=== PATIENT | female | born 2000 | race Caucasian/White ===

== ENCOUNTER 2024-06-24 10:28 | Emergency (ER) | payer MEDICAID, OTHER, SELFPAY ==
[2024-06-24] VITALS (11 sets, daily range): BP systolic 97–127; BP diastolic 54–63; PULSE 87–128; RESP 16–34; TEMP 36.7–37.3; O2SAT 90–98; BMI 19.5
--- NOTE | ~2024-06-24 | XR_ITS ---
EXAMINATION: XR CHEST CLINICAL INFORMATION: shortness of breath COMPARISON: None TECHNIQUE: One view of the chest FINDINGS: Lines and tubes: None. Clear lungs. No pleural effusion. No pneumothorax. Normal cardiomediastinal silhouette. XR/XR chest 1V IMPRESSION: * Clear lungs. Electronically signed by: Ely Sánchez MD 06/24/2024 05:34 PM EDT RP
--- NOTE | ~2024-06-24 | US_ITS ---
EXAMINATION: US TRIPLEX LOWER EXTREMITY, BILATERAL CLINICAL INFORMATION: Dyspnea, history of pulmonary embolus COMPARISON: None available. TECHNIQUE: Color-flow triplex imaging with spectral analysis and compression Doppler were performed on the bilateral lower extremities. FINDINGS: Respiratory variation, normal compression and augmented flow are noted throughout the bilateral lower extremities. The visualized common femoral vein, superficial femoral vein, profunda femoral vein, popliteal vein and midcalf peroneal and posterior tibial venous segments show no evidence of deep venous thrombosis bilaterally. There is no Gomez's cyst. US/US venous duplex LE BI IMPRESSION: No evidence of deep venous thrombosis involving the bilateral lower extremities. Electronically signed by: Marc oAntonio Daley MD 06/24/2024 02:20 PM EDT
--- NOTE | 2024-06-24 10:57 | ECG_ITS ---
Test Reason : CHEST PAIN Blood Pressure : / mmHG Vent. Rate : 093 BPM Atrial Rate : 093 BPM P-R Int : 132 ms QRS Dur : 068 ms QT Int : 342 ms P-R-T Axes : 074 072 066 degrees QTc Int : 425 ms Normal sinus rhythm Normal ECG No previous ECGs available Referred By: Generic ED Physician Electronically Signed By:LATOYA STORY
[2024-06-24 11:18] LABS: MANUAL DIFF FLAG NO
[2024-06-24 11:19] LABS: Basophils Percent Auto 0.3 % (0-2); Imm Gran Abs Auto 0.03 X10*3/uL (0.00-0.03); Imm Gran Pct Auto 0.5 % (0.0-0.4); PLT CLUMP 1; SCAN SMEAR FLAG 1
[2024-06-24 11:21] LABS: Eosinophils Absolute Auto 0.2 X10*3/uL (0.0-0.4); Eosinophils Percent Auto 2.5 % (0-4); Hematocrit 30.9 % (37.0-47.0); Hemoglobin 10.2 g/dl (12.0-16.0); Lymphocytes Absolute Auto 1.2 X10*3/uL (1.2-4.9); Lymphocytes Percent Auto 18.4 % (20-40); Mean Corpuscular Volume 78.6 fL (80.0-98.0); Mean Platelet Volume 10.6 fL (9.4-12.3); Monocytes Absolute Auto 0.4 X10*3/uL (0.1-1.2); Monocytes Percent Auto 6.1 % (2-11); Neutrophils Absolute Auto 4.6 x10*3/uL (2.0-8.3); Neutrophils Percent Auto 72.2 % (45-73); Red Blood Count 3.93 X10*6/uL (4.20-5.50); Red Cell Distribution Width 15.7 % (11.0-16.0)
[2024-06-24 11:24] LABS: Platelet Count 123 X10*3/uL (160-400); White Blood Count 6.4 X10*3/uL (4.8-10.8)
[2024-06-24 11:41] LABS: Alanine Aminotransferase 12 U/L (0-31); Albumin Level 3.5 g/dL (3.5-5.0); Alkaline Phosphatase 83 U/L (39-117); Anion Gap 12 (12-20); Aspartate Amino Transferase 10 U/L (5-31); Bilirubin Total 0.7 mg/dL (0.0-1.0); Blood Urea Nitrogen 8 mg/dL (9-16); Calcium 9.3 mg/dL (8.4-10.2); Carbon Dioxide 23 mmol/L (22-29); Chloride 110 mmol/L (96-108); Creatinine Clr Calc Pharmacy 109.3; Estimated Glomerular Filt Rate > 60; Glucose Random 67 mg/dL (60-115); HCG Quantitative 5017 mIU/mL; Potassium 3.6 mmol/L (3.3-5.1); Sodium 141 mmol/L (135-145); Total Protein 5.6 g/dL (6.5-8.0)
[2024-06-24 11:50] LABS: Troponin-I High Sensitivity < 2.7 ng/L (<3.5-17.0)
--- NOTE | 2024-06-24 12:10 | ED_ITS ---
HPI - General Adult General Chief complaint: Anxiety Stated complaint: anxiety Time Seen by Provider: 06/24/24 12:10 History of Present Illness ED Provider: Madeline GRIFFITH narrative: The patient is a 23-year-old female who reports that she is approximately 25 weeks . She has been living in [place] until 3 days ago. She came to this area 3 days ago on . She reports a history of myelofibrosis although she does not really know much about it. She says this is her 2nd . Her 1st was 7 years ago and she says it had no complications. She says that 2 years ago she had a pulmonary embolism. She says that during this she was hospitalized in the intensive care unit at a hospital in [place] 1-1/2 months ago for a kidney infection. She says that she is still on nitrofurantoin since that hospitalization and infection. She also takes a baby aspirin daily, apparently because of problems with her spleen she says. She says that she has a history of asthma but can not tolerate albuterol because of tachycardia and so uses only ipratropium. She says she also has a history of anxiety for which she has been prescribed hydroxyzine. The patient says that she comes to the hospital today because she feels anxious. She also has a sense of shortness of breath and chest discomfort. She says she has had trouble with breathing for a few years but possibly the trouble with the breathing is worse over the past couple of days. She has had some mild upper epigastric pain but no lower abdominal or pelvic pain. No vaginal bleeding or other concerns about the itself. She says she feels the baby moving a lot. The patient's current medications are a baby aspirin daily, nitrofurantoin, as needed hydroxyzine, and a vitamin as well as inhaled ipratropium. The patient is coughing in the emergency room today. She says the cough is chronic. She says she has had a chronic cough for 2 years. She says she produces green sputum. She says that she has been producing green sputum chronically for 2 years. She has not had a fever. She has no discomfort with urination, urinary frequency or urinary urgency. Related Data Previous Rx's ?Medication ?Instructions ?Recorded azithromycin 250 mg tablet 250 mg PO DAILY 4 days #4 tabs 06/24/24 ipratropium bromide 17 2 puff inhalation QID PRN 06/24/24 mcg/actuation HFA aerosol inhaler shortness of breath or wheezing #12.9 grams prednisone 20 mg tablet 20 mg PO DAILY #12 tabs 06/24/24 Allergies Allergy/AdvReac Type Severity Reaction Status Date / Time No Known Allergies Allergy Verified 06/24/24 10:53 Review of Systems 2 Review of Systems: Yes all other systems are reviewed and are negative [facility] Social History Social History Advance Directives: No Advance Directives Information Provided: No Do you have a plan to hurt others: No Plan Physical Exam ED Vital Signs: Vital Signs - 24 hr 06/24/24 10:47 06/24/24 13:52 06/24/24 14:00 Temperature 98.0 F 98.7 F 98.8 F Pulse Rate 98 87 99 Respiratory Rate 16 16 19 Blood Pressure 97/57 L 111/58 L 122/55 L Pulse Oximetry 95 98 96 Oxygen Delivery Method Room Air Room Air Room Air Oxygen Flow Rate 06/24/24 16:00 06/24/24 16:40 06/24/24 16:51 Temperature 98.1 F 98.7 F Pulse Rate 128 H 113 H 109 H Respiratory Rate 22 H 27 H 23 H Blood Pressure 127/63 127/63 Pulse Oximetry 90 L 94 Oxygen Delivery Method Room Air Nasal Cannula Oxygen Flow Rate 2 06/24/24 17:32 06/24/24 18:00 06/24/24 18:21 Temperature 98.5 F 99.1 F Pulse Rate 112 H 111 H 109 H Respiratory Rate 20 34 H 26 H Blood Pressure 100/54 L 114/57 L Pulse Oximetry 94 93 Oxygen Delivery Method Nasal Cannula Aerosol Mask Oxygen Flow Rate 2 06/24/24 19:28 Temperature 98.4 F Pulse Rate 109 H Respiratory Rate 18 Blood Pressure 105/56 L Pulse Oximetry 91 L Oxygen Delivery Method Room Air Oxygen Flow Rate BMI result Body Mass Index 19.5 Const Other: The patient is a 23-year-old who looks somewhat chronically ill. She is very slim despite being . She weighs 46.7 kilos. She was coughing a great deal with a congested-sounding cough. She says she has had a cough like this for 2 years. HENMT Other: Face is symmetrical. Mucous membranes moist. The posterior pharynx is unremarkable. Eyes Other: Pupils are round equal, conjunctivae are clear, extraocular movements intact. Neck Other: No JVD. No lymphadenopathy. Resp Other: The patient seemed to have some mild increased work of breathing. She had coarse and rhonchorous air entry bilaterally without joel wheezes. Cardio Rate: regular rate Rhythm: regular rhythm Heart sounds: S1 normal heart sound present and S2 normal heart sound present GI Other: The patient has a gravid abdomen with the uterine fundus just above the level of the umbilicus. There was no abdominal tenderness or uterine tenderness. Skin Other: Skin was pale and dry Neuro Other: The patient is awake and alert with a normal mental status. Cranial nerves are grossly intact. She moves her extremities normally and appropriately. Her gait is normal. She seems grossly neurologically intact Extrem Other: No peripheral edema. No calf swelling or tenderness or asymmetry. Medications Administered Discontinued Medications Generic Name Dose Route Start Last Admin Trade Name Freq PRN Reason Stop Dose Admin Azithromycin 500 mg 06/24/24 18:20 06/24/24 19:31 Azithromycin 500 Mg Tablet PO 06/24/24 18:21 500 mg ONCE ONE Administration Levalbuterol HCl 1.25 mg/ 0 mg 06/24/24 18:12 06/24/24 18:19 Ipratropium [place] 0.5 mg INHALE 06/24/24 18:13 5 dose ONCE ONE Administration Levalbuterol HCl 1.25 mg 06/24/24 16:26 06/24/24 16:47 Levalbuterol Hcl 1.25 Mg/3 Ml Vial.Neb INHALE 06/24/24 16:27 1.25 mg ONCE ONE Administration Prednisone 60 mg 06/24/24 18:20 06/24/24 19:30 Prednisone 20 Mg Tablet PO 06/24/24 18:21 60 mg ONCE ONE Administration Medical Decision Making Medical Decision Making MDM Narrative: The patient is a 23-year-old female who reports that she is 25 weeks with her 2nd child. Her previous was 7 years ago and was apparently without complications. She reports that she has a history of asthma. She also reports that she has a history of myelofibrosis. Additionally she says that a month and a half ago she was hospitalized at an ICU in [place] for a kidney infection. She also says that 2 years ago she had a pulmonary embolism. She was unable to give me any details about the duration of any anticoagulation treatment she had received for a pulmonary embolism. She says she has not been on any anticoagulation during this aside from the time that she was admitted to the ICU. The patient has been on nitrofurantoin since the hospitalization for her kidney infection. She says she also takes a baby aspirin daily because of something to do with her spleen. She is also on vitamins. The patient arrived in the [facility] 3 days ago. She does not have any local healthcare providers. The patient was complaining primarily of a sense of anxiety and frustration that hydroxyzine was not helping her anxiety. She looks mildly short of breath and was coughing a great deal. The patient repeatedly said that she has had breathing problems like this consistently for 2 years and that neither her shortness of breath nor her cough are new. She has a history of asthma but apparently does not take albuterol because of tachycardia. She says she takes ipratropium. My overall clinical impression was that the patient's respiratory symptoms seemed more related to congestion and cough and possibly asthma than a pulmonary embolism. To address the concern for a possible pulmonary embolism, particularly given her and a previous history of a pulmonary embolism, we obtained a D-dimer that was undetectable. Also bilateral lower extremity ultrasounds that were negative. Troponin undetectable. A chest x-ray was read as negative. COVID, RSV, and influenza is negative. She has a normal white count of 6.4. Mild anemia with a hemoglobin of 10.2. Platelet count 123. Differential on her white count shows 72% neutrophils, 18% lymphocytes. I spoke with Dr. Dominic muro of [facility] who recommended possibly contacting [facility] OB for additional advice. I contacted the [facility] transfer hotline and was able to speak with a senior resident. Given the the patient has comorbidities it seems not unreasonable that the patient possibly be seen at the maternal medicine clinic. The plan at this point will be for the patient to be discharged for treatment of a possible asthma exacerbation with prednisone and azithromycin. My hope is that the Maternal- Medicine office will reach out to the patient for an appointment, trying to contact the patient at her cell phone [phone]. The patient has also been given the number for the Maternal- Medicine Clinic at [facility]. If the patient's symptoms are worse she should return to the emergency room. The patient remained frustrated that I was not able to prescribe something to help with the symptoms that she describes as anxiety. Lab Data 06/24/24 11:09 06/24/24 11:09 Labs: Lab Results 06/24/24 06/24/24 06/24/24 Range/Units 11:09 14:02 14:04 WBC 6.4 (4.8-10.8) X10*3/uL RBC 3.93 L (4.20-5.50) X10*6/uL Hgb 10.2 L (12.0-16.0) g/dl Hct 30.9 L (37.0-47.0) % MCV 78.6 L (80.0-98.0) fL MCH 26.0 L (27.0-33.0) pg MCHC 33.0 (31.0-35.0) g/dl RDW 15.7 (11.0-16.0) % Plt Count 123 L (160-400) X10*3/uL MPV 10.6 (9.4-12.3) fL Immature Gran % (Auto) 0.5 H (0.0-0.4) % Neut % (Auto) 72.2 (45-73) % Lymph % (Auto) 18.4 L (20-40) % [place] % (Auto) 6.1 (2-11) % Eos % (Auto) 2.5 (0-4) % Baso % (Auto) 0.3 (0-2) % Lymph # (Auto) 1.2 (1.2-4.9) X10*3/uL [place] # (Auto) 0.4 (0.1-1.2) X10*3/uL Eos # (Auto) 0.2 (0.0-0.4) X10*3/uL Baso # (Auto) 0.0 (0.0-0.2) X10*3/uL Abs Immat Gran (auto) 0.03 (0.00-0.03) X10*3/uL Absolute Neuts (auto) 4.6 (2.0-8.3) x10*3/uL Absolute Nucleated RBC 0.000 (0.0-0.012) X10*3/uL Nucleated RBC % (auto) 0.0 (0.0-0.2) /100WBC D-Dimer High Sensitivty < 150 NG/ML Sodium 141 (135-145) mmol/L Potassium 3.6 (3.3-5.1) mmol/L Chloride 110 H (96-108) mmol/L Carbon Dioxide 23 (22-29) mmol/L Anion Gap 12 (12-20) BUN 8 L (9-16) mg/dL Creatinine 0.59 (0.5-1.4) mg/dL Estim Creat Clear Calc 109.3 Estimated GFR > 60 Random Glucose 67 (60-115) mg/dL Calcium 9.3 (8.4-10.2) mg/dL Total Bilirubin 0.7 (0.0-1.0) mg/dL AST 10 (5-31) U/L ALT 12 (0-31) U/L Alkaline Phosphatase 83 (39-117) U/L Troponin I High Sens < 2.7 (<3.5-17.0) ng/L Total Protein 5.6 L (6.5-8.0) g/dL Albumin 3.5 (3.5-5.0) g/dL Beta HCG, Quant 5017 mIU/mL Urine Color Dark Yellow Urine Appearance Clear Urine pH 5.5 (5.0-9.0) Ur Specific [place] 1.025 (1.005-1.025) Urine Protein 30 (1+) H (Neg-Trace) mg/dL Urine Glucose (UA) Negative (Negative) mg/dL Urine Ketones Trace (Negative) mg/dL Urine Blood Trace H (Negative) Urine Nitrite Negative (Negative) Ur Leukocyte Esterase Moderate (2+) H (Negative) Urine RBC 11-20 H (0-2) /HPF Urine WBC 11-20 H (0-5) /HPF Ur Squamous Epith Cells 3-5 (0-2) /HPF Urine Bacteria None Seen (None Seen) Hyaline Casts 0-2 (0-2) /LPF Influenza Type A (PCR) (Negative) Influenza Type B (PCR) (Negative) RSV RNA Qual (PCR) (Negative) SARS-CoV-2 RNA (RT-PCR) (Negative) 06/24/24 Range/Units 20:03 WBC (4.8-10.8) X10*3/uL RBC (4.20-5.50) X10*6/uL Hgb (12.0-16.0) g/dl Hct (37.0-47.0) % MCV (80.0-98.0) fL MCH (27.0-33.0) pg MCHC (31.0-35.0) g/dl RDW (11.0-16.0) % Plt Count (160-400) X10*3/uL MPV (9.4-12.3) fL Immature Gran % (Auto) (0.0-0.4) % Neut % (Auto) (45-73) % Lymph % (Auto) (20-40) % [place] % (Auto) (2-11) % Eos % (Auto) (0-4) % Baso % (Auto) (0-2) % Lymph # (Auto) (1.2-4.9) X10*3/uL [place] # (Auto) (0.1-1.2) X10*3/uL Eos # (Auto) (0.0-0.4) X10*3/uL Baso # (Auto) (0.0-0.2) X10*3/uL Abs Immat Gran (auto) (0.00-0.03) X10*3/uL Absolute Neuts (auto) (2.0-8.3) x10*3/uL Absolute Nucleated RBC (0.0-0.012) X10*3/uL Nucleated RBC % (auto) (0.0-0.2) /100WBC D-Dimer High Sensitivty NG/ML Sodium (135-145) mmol/L Potassium (3.3-5.1) mmol/L Chloride (96-108) mmol/L Carbon Dioxide (22-29) mmol/L Anion Gap (12-20) BUN (9-16) mg/dL Creatinine (0.5-1.4) mg/dL Estim Creat Clear Calc Estimated GFR Random Glucose (60-115) mg/dL Calcium (8.4-10.2) mg/dL Total Bilirubin (0.0-1.0) mg/dL AST (5-31) U/L ALT (0-31) U/L Alkaline Phosphatase (39-117) U/L Troponin I High Sens (<3.5-17.0) ng/L Total Protein (6.5-8.0) g/dL Albumin (3.5-5.0) g/dL Beta HCG, Quant mIU/mL Urine Color Urine Appearance Urine pH (5.0-9.0) Ur Specific [place] (1.005-1.025) Urine Protein (Neg-Trace) mg/dL Urine Glucose (UA) (Negative) mg/dL Urine Ketones (Negative) mg/dL Urine Blood (Negative) Urine Nitrite (Negative) Ur Leukocyte Esterase (Negative) Urine RBC (0-2) /HPF Urine WBC (0-5) /HPF Ur Squamous Epith Cells (0-2) /HPF Urine Bacteria (None Seen) Hyaline Casts (0-2) /LPF Influenza Type A (PCR) NEGATIVE (Negative) Influenza Type B (PCR) NEGATIVE (Negative) RSV RNA Qual (PCR) NEGATIVE (Negative) SARS-CoV-2 RNA (RT-PCR) NEGATIVE (Negative) Discharge Plan Discharge Clinical Impression: Acute asthma exacerbation, 25 weeks gestation of , Hx of myelofibrosis Patient Disposition: Home, Self-Care Additional Instructions: Your testing in the emergency department seems reassuring. I think that a lot of your breathing symptoms may be related to asthma. You have been started on a course of prednisone (a steroid medication) and the antibiotic azithromycin. Please take these medications once a day. Next doses of each of these medications tomorrow. I have also sent a prescription for an ipratropium inhaler which you may use on an as-needed basis, 2 puffs up to 4 times a day. Please follow through with your efforts to get local insurance as scheduled tomorrow. I have spoken to 1 of the obstetrical services at [facility]. My hope is that they call you at [phone] tomorrow to set up an appointment for you. The phone number for the office is [phone]. You may also try to call the office if you do not hear from them. If at any point you feel that your symptoms are significantly worse you should return to the emergency room. You are welcome to return to this emergency room but if you go to the [facility] Emergency room it may be more helpful in getting set up with the obstetricians at [facility]. Prescriptions: New prednisone 20 mg tablet 20 mg PO DAILY Qty: 12 0RF Rx Instructions: Take 3 tablets daily x2 days then 2 tablets daily x3 days azithromycin 250 mg tablet 250 mg PO DAILY 4 Days Qty: 4 0RF Rx Instructions: start on day 2 of therapy ipratropium bromide 17 mcg/actuation HFA aerosol inhaler 2 puff inhalation QID PRN (Reason: shortness of breath or wheezing) Qty: 12.9 0RF Referrals: [facility] Maternal Med [Provider Group] (Twenty-five weeks , asthma, myelofibrosis, other issues) Print Language: Tajik
[2024-06-24 14:11] LABS: Appearance Urine Clear; Color Urine Dark Yellow; Glucose Urine UA Negative (Negative); Leukocyte Esterase Urine Moderate (2+) (Negative); Nitrite Urine Negative (Negative); PH 5.5 (5.0-9.0); Specific Gravity - Urine 1.025 (1.005-1.025); UMIC TRIGGER UACC YES; Urine Blood Trace (Negative); Urine Ketones Trace mg/dL (Negative); Urine Protein 30 (1+) mg/dL (Neg-Trace)
[2024-06-24 14:14] LABS: Bacteria Urine None Seen (None Seen); Hyaline Casts Urine 0-2 /LPF (0-2); UACC Culture Trigger YES
[2024-06-24 14:30] LABS: D Dimer High Sensitivity < 150 NG/ML
[2024-06-24] MEDS: levalbuterol HCL 1.25 MG/3 ML VIAL.NEB INHALE (16:47)
--- NOTE | 2024-06-24 17:05 | PC.NURSE ---
heart rate done at bedside with Doppler, rate strong, rate 145-155. patient tolerated well.
[2024-06-24] MEDS: levalbuterol HCL 1.25 MG, Ipratropium Bromide 0.5 MG INHALE (18:19)
[2024-06-24] MEDS: predniSONE 20 MG TABLET 60 MG PO (19:30)
[2024-06-24] MEDS: Azithromycin 500 MG TABLET PO (19:31)
[2024-06-24 20:45] LABS: Influenza A PCR NEGATIVE (Negative); Influenza B PCR NEGATIVE (Negative); Resp Syncy Virus RNA Qual PCR NEGATIVE (Negative); SARS COV2 PCR INHOUSE NEGATIVE (Negative)
== END 2024-06-24 21:16 | disposition home or self-care (01) ==
PROVIDERS: Emergency Provider Emergency Medicine
DX: O99.342 Other mental disorders complicating pregnancy, second trimester (principal); Z3A.25 25 weeks gestation of pregnancy; R00.0 Tachycardia, unspecified; R06.02 Shortness of breath; R60.0 Localized edema; R07.89 Other chest pain; Z03.818 Encounter for observation for suspected exposure to other biological agents ruled out; Z79.899 Other long term (current) drug therapy
CPT/HCPCS: 0241U; 36415; 71045; 80053; 81001; 84484; 84702; 85025; 85379; 87086; 93005; 93970; 94640; 99284

== ENCOUNTER 2024-07-06 03:43 | Emergency (ER) | payer OTHER, SELFPAY ==
--- NOTE | 2024-07-06 | ECG_ITS ---
Test Reason : tacycardia Blood Pressure : / mmHG Vent. Rate : 118 BPM Atrial Rate : 118 BPM P-R Int : 114 ms QRS Dur : 064 ms QT Int : 314 ms P-R-T Axes : 071 059 067 degrees QTc Int : 440 ms Sinus tachycardia Otherwise normal ECG When compared with ECG of 24-JUN-2024 10:57, Heart rate has increased Referred By: Generic ED Physician Electronically Signed By:LATOYA STORY
[2024-07-06 03:51] VITALS: BP 100/79; PULSE 118; RESP 22; TEMP 36.9; O2SAT 92
[2024-07-06 04:19] VITALS: BP 100/79; PULSE 118; RESP 22; TEMP 36.9; O2SAT 92
--- NOTE | 2024-07-06 04:26 | MHC.EDTECH ---
Patient brought in from triage,changed into hospital attire,placed pt on the instructional support services director,patient ambulated to the bathroom with a steady gait,urine sample obtained and sent to lab,family at bedside call elena in reach
[2024-07-06 04:35] LABS: Appearance Urine Clear; Color Urine Yellow; Glucose Urine UA Negative (Negative); Leukocyte Esterase Urine Small (1+) (Negative); Nitrite Urine Negative (Negative); PH 7.5 (5.0-9.0); UMIC TRIGGER UACC YES; Urine Blood Small (1+) (Negative); Urine Ketones Negative (Negative); Urine Protein Negative (Neg-Trace)
[2024-07-06] MEDS: Acetaminophen 325 MG TABLET 650 MG PO (04:46)
[2024-07-06 04:49] LABS: Bacteria Urine None Seen (None Seen); Hyaline Casts Urine 0-2 /LPF (0-2); Squamous Epithelial Cell Urine 0-2 /HPF (0-2); UACC Culture Trigger YES; WBC Urine 0-5 /HPF (0-5)
--- NOTE | 2024-07-06 05:35 | ED_ITS ---
HPI - General Adult General Chief complaint: Anxiety Stated complaint: heart palp Time Seen by Provider: 07/06/24 05:35 History of Present Illness ED Provider: Madeline GRIFFITH narrative: The patient is a 23-year-old female who is approximately 27 weeks . The patient was seen here almost 2 weeks ago for similar complaints. Before her visit here 2 weeks ago she had just arrived to this area from [place]. She says that this is her second . Her first was 7 years ago and was uncomplicated. She reports a history of myelofibrosis. She also reported that she has a history of a pulmonary embolism 2 years ago. During this she was hospitalized in [place] for pyelonephritis. Apparently she was in the ICU for awhile. She also reports that she has had chronic shortness of breath and a chronic cough for 2 years. The patient also said that she has been having a lot of anxiety and had been prescribed hydroxyzine for anxiety but did not feel that it was helpful. At her previous ER visit the patient had been tachycardic with oxygen saturations of around 92-94% on room air. A D-dimer has been sent to evaluate for possible pulmonary embolism. Her D-dimer was undetectable. Additionally we had performed bilateral lower extremity Doppler ultrasounds which were negative. Patient has been on long-term nitrofurantoin since her hospitalization for pyelonephritis 2 months ago. At her last ER visit I had spoken to an obstetrical resident to see if the patient could get into the Maternal- medicine high risk clinic and it has was my hope that the patient would follow up with that clinic after discharge from here. She was discharged with a prescription of prednisone and azithromycin. The patient says that she has been in contact with the [facility] obstetrical clinic and that she has had an obstetrical ultrasound in anticipation of an actual doctor's visit but the doctor's visit has not yet happened. She says she has an appointment on July 11. The patient says that she has continued to have difficulty with anxiety and was sleeping. She says that she contacted the obstetrical nurse at [facility] about her anxiety in her sense of difficulty speaking and was advised to try Benadryl. She says that she comes to the emergency room this morning because she took Benadryl hoping that it would help her sleep but instead she felt an increased sense of anxiety and she felt her heart was racing. While waiting to be seen in the emergency room today she felt that her symptoms had subsided and she was feeling less anxious and she had felt that her heart was no longer racing. Overall she feels that her breathing is better than when she was here last time following the prednisone and azithromycin. No fever, sweats, chills. She has been feeling the baby move. She has had no vaginal discharge or vaginal bleeding. Related Data Previous Rx's ?Medication ?Instructions ?Recorded azithromycin 250 mg tablet 250 mg PO DAILY 4 days #4 tabs 06/24/24 ipratropium bromide 17 2 puff inhalation QID PRN 06/24/24 mcg/actuation HFA aerosol inhaler shortness of breath or wheezing #12.9 grams prednisone 20 mg tablet 20 mg PO DAILY #12 tabs 06/24/24 Allergies Allergy/AdvReac Type Severity Reaction Status Date / Time No Known Allergies Allergy Verified 07/06/24 03:53 Review of Systems Review of Systems: Yes all other systems are reviewed and are negative COUNTS INCLUDE 234 BEDS AT THE [facility] Social History Social History Alcohol intake: former Smoked in Last 30 Days: No Use of substances other than those prescribed or required for medical reasons: No Advance Directives: No Advance Directives Information Provided: Yes Patient : Yes Physical Exam ED Vital Signs: Vital Signs - 24 hr 07/06/24 03:51 07/06/24 04:19 07/06/24 06:20 Temperature 98.5 F 98.5 F Pulse Rate 118 H 118 H 111 H Respiratory Rate 22 H 22 H 20 Blood Pressure 100/79 100/79 Pulse Oximetry 92 92 Oxygen Delivery Method Room Air Room Air 07/06/24 06:33 Temperature 98.3 F Pulse Rate 98 Respiratory Rate 30 H Blood Pressure 114/59 L Pulse Oximetry 92 Oxygen Delivery Method Room Air BMI result Body Mass Index 20.0 Const Other: The patient is a 23-year-old who is with a gravid abdomen but is otherwise very thin. She does not appear in acute distress. HENMT Other: Face is symmetrical. Mucous membranes moist. Eyes Other: Pupils are round equal, conjunctivae clear Neck Neck: Yes no JVD Resp Other: Slight wheezes bilaterally. No increased work of breathing Cardio Rate: regular rate Rhythm: regular rhythm Heart sounds: S1 normal heart sound present and S2 normal heart sound present GI Other: The patient has a gravid abdomen. The uterine fundus is just above the umbilicus. The abdomen is nontender. The uterus is nontender. Skin Other: Skin is pale and dry Neuro Other: The patient is awake and alert with a normal mental status. Cranial nerves are grossly intact. She moves her extremities normally. She has a normal gait. Extrem Other: No calf swelling or tenderness. No edema, no asymmetry. Medications Administered Discontinued Medications Generic Name Dose Route Start Last Admin Trade Name Remington PRN Reason Stop Dose Admin Acetaminophen 650 mg 07/06/24 04:40 07/06/24 04:46 Acetaminophen 325 Mg Tablet PO 07/06/24 04:41 650 mg ONCE ONE Administration Levalbuterol HCl 1.25 mg/ 0 mg 07/06/24 06:05 07/06/24 06:17 Ipratropium [place] 0.5 mg INHALE 07/06/24 06:06 5.5 dose ONCE ONE Administration Medical Decision Making Medical Decision Making [facility] Narrative: The patient is a 23-year-old who is approximately 27 weeks . She has a history of myelofibrosis and a history of a pulmonary embolism. She also has a history of asthma and chronic cough. Earlier in this she had a hospitalization at an ICU in [place] for pyelonephritis. She is on suppressive nitrofurantoin. With the patient was here 2 weeks ago she was complaining primarily of anxiety and asking for anxiety medication. She also had a significant cough that she said was chronic and which she had had for 2 years. During her workup on her previous ER visit she had an undetectable D-dimer and a negative bilateral lower extremity Doppler ultrasound. She was ultimately discharged on prednisone and azithromycin and a plan to follow up with the [facility] Maternal- Medicine Clinic. She presents tonight after apparently taking Benadryl that was recommended by a nurse she had called, possibly at [facility] OB. She says that she developed a significant skin sense of palpitations and racing heart after taking the Benadryl and so came to the emergency room. Since she was here 2 weeks ago she has had an ultrasound at [facility] but has not actually had an OB appointment yet. The patient is most concerned that she feels chronically anxious and is sleeping extremely poorly. She feels that her respiratory status is doing better since she took the prednisone and azithromycin. She is not having any chest pain or pleuritic pain. Clinically the patient looks very much the same as she did 2 weeks ago. Her vital signs of very similar to her vital signs 2 weeks ago. Given house similar her presentation is today I think we probably do not need to repeat the workup she had previously. She seems to be here primarily because she felt bad after taking Benadryl. She was given a dose of Xopenex (she says she does not tolerate albuterol). She then fell asleep. She seemed to feel better and I think she may be discharged to keep her appointment with [facility] next week. Lab Data Labs: Lab Results 07/06/24 Range/Units 04:16 Urine Color Yellow Urine Appearance Clear Urine pH 7.5 (5.0-9.0) Ur Specific [place] 1.020 (1.005-1.025) Urine Protein Negative (Neg-Trace) mg/dL Urine Glucose (UA) Negative (Negative) mg/dL Urine Ketones Negative (Negative) mg/dL Urine Blood Small (1+) H (Negative) Urine Nitrite Negative (Negative) Ur Leukocyte Esterase Small (1+) H (Negative) Urine RBC 11-20 H (0-2) /HPF Urine WBC 0-5 (0-5) /HPF Ur Squamous Epith Cells 0-2 (0-2) /HPF Urine Bacteria None Seen (None Seen) Hyaline Casts 0-2 (0-2) /LPF Discharge Plan Discharge Clinical Impression: Palpitations, Anxiety, with 27 completed weeks gestation, Asthma, History of myelofibrosis Patient Disposition: Home, Self-Care Additional Instructions: Please continue your current medications. Please stay in touch with the obstetrical office at [facility]. Keep your appointment with them next week. Return to the emergency room if significantly worse. Prescriptions: No Action prednisone 20 mg tablet 20 mg PO DAILY Qty: 12 0RF Rx Instructions: Take 3 tablets daily x2 days then 2 tablets daily x3 days azithromycin 250 mg tablet 250 mg PO DAILY 4 Days Qty: 4 0RF Rx Instructions: start on day 2 of therapy ipratropium bromide 17 mcg/actuation HFA aerosol inhaler 2 puff inhalation QID PRN (Reason: shortness of breath or wheezing) Qty: 12.9 0RF Print Language: English
[2024-07-06] MEDS: levalbuterol HCL 1.25 MG, Ipratropium Bromide 0.5 MG INHALE (06:17)
[2024-07-06 06:20] VITALS: PULSE 111; RESP 20; O2SAT 94
[2024-07-06 06:33] VITALS: BP 114/59; PULSE 98; RESP 30; TEMP 36.8; O2SAT 92
[2024-07-06 07:31] VITALS: BP 114/59; PULSE 98; RESP 30; TEMP 36.8; O2SAT 92
== END 2024-07-06 07:31 | disposition home or self-care (01) ==
PROVIDERS: Emergency Provider Emergency Medicine
DX: O99.342 Other mental disorders complicating pregnancy, second trimester (principal); F41.9 Anxiety disorder, unspecified; O26.892 Other specified pregnancy related conditions, second trimester; R00.2 Palpitations; O99.512 Diseases of the respiratory system complicating pregnancy, second trimester; J45.909 Unspecified asthma, uncomplicated; D75.81 Myelofibrosis; Z3A.27 27 weeks gestation of pregnancy
CPT/HCPCS: 81001; 87086; 93005; 94640; 99285

== ENCOUNTER 2024-07-21 17:44 | Emergency (ER) | payer OTHER, SELFPAY ==
--- NOTE | ~2024-07-21 | XR_ITS ---
EXAMINATION: XR CHEST CLINICAL INFORMATION: Shortness of breath COMPARISON: 07/24/2024 TECHNIQUE: Portable semiupright 6:16 PM view of the chest was obtained. FINDINGS: Increased chronic lung markings right base appears chronic. No new findings grossly. Heart and mediastinum are normal. No pleural disease. No ectopic air. No gross rib deformity. XR/XR chest 1V IMPRESSION: Chronic changes at the bases as above. Electronically signed by: Sonido Mota MD 07/21/2024 06:39 PM EDT
--- NOTE | ~2024-07-21 | CT_ITS ---
EXAMINATION: CT ANGIOGRAM OF THE CHEST WITH AND WITHOUT CONTRAST (CT PULMONARY ANGIOGRAM FOR PE) CLINICAL INFORMATION: SOB, Tachy, hypox, hx of PE, R sided pain COMPARISON: EXAMINATION: CT ANGIOGRAM OF THE CHEST WITH AND WITHOUT CONTRAST (CT PULMONARY ANGIOGRAM FOR PE) CLINICAL INFORMATION: SOB, Tachy, hypox, hx of PE, R sided pain COMPARISON: None available. TECHNIQUE: Examination is limited due to respiratory motion Prior to contrast administration, noncontrast localization images were obtained. Subsequently, multidetector volumetric imaging was performed from the thoracic inlet to below the diaphragms following the administration of 65 mL Omnipaque 350 intravenous contrast. No contrast reaction reported Sagittal, coronal, and MIP oblique sagittal reformatted images were obtained on the CT workstation, uploaded to PACS, and reviewed. This CT examination was performed using dose optimization techniques as appropriate, variously including the following: *Automated exposure control *Adjustment of mA and/or kV according to patient size (this includes techniques or standardized protocols for targeted exams where dose is matched to indication/reason for exam; i.e. extremities or head) *Use of iterative reconstruction technique Total exam dose-length product 151 mGy-cm FINDINGS: QUALITY OF STUDY/CONTRAST BOLUS: Suboptimal due to respiratory motion PULMONARY ARTERIES: No pulmonary emboli. THORACIC AORTA: No aneurysm. LUNG: No focal consolidation, nodules or masses. PLEURA: No pleural effusion or pneumothorax. MEDIASTINUM: Normal heart size. No pericardial effusion. No hilar or mediastinal lymphadenopathy. No evidence of septal bowing or right heart strain. CORONARY ARTERY CALCIFICATION: None visualized on this study. CHEST WALL/AXILLA: No axillary or internal mammary lymphadenopathy. OSSEOUS STRUCTURES: No acute or suspicious osseous abnormality. UPPER ABDOMEN: Unremarkable. No reflux of contrast into the hepatic veins to suggest elevated right heart pressures. CT/CT angio chest PE protocol IMPRESSION: No evidence of pulmonary embolism Technically limited study due to respiratory motion VTE: negative Electronically signed by: Nathalie Nichole MD 07/21/2024 07:47 PM EDT
[2024-07-21 17:55] VITALS: BP 109/59; PULSE 134; RESP 20; TEMP 37.1; O2SAT 91; BMI 19.6
--- NOTE | 2024-07-21 17:59 | ED_ITS ---
HPI - General Adult General Chief complaint: Abdominal Pain Stated complaint: abd pain, sob ,29 wks Time Seen by Provider: 07/21/24 18:07 History of Present Illness ED Provider: Madeline GRIFFITH narrative: The patient is a 24-year-old female who is approximately 29 weeks . She has a complicated past medical history that includes a history of myelofibrosis an asthma. She also has a history of a pulmonary embolism 2 years ago. This is her 2nd . Her 1st was 7 years ago and she had no complications during that . Additionally, during this she was hospitalized in an intensive care unit 2-1/2 months ago for a kidney infection. The patient has been living in [place] until 1 month ago. Her ICU hospitalization was in [place]. The patient has been on Macrobid prophylaxis since that hospitalization. The patient came to this area about 1 month ago on June 24. This emergency room soon after arriving with a complaint of a chronic cough. She had an undetectable D-dimer at that time and seemed to have asthmatic bronchitis. She was treated with prednisone and azithromycin. Given her complex medical history she was referred to the Maternal- medicine program at [facility]. The patient presented here a 2nd time on July 06 complaining of anxiety and difficulty sleeping. She was evaluated. She seemed stable and was encouraged to continue hydroxyzine and continued to keep appointments to follow up with [facility] Maternal- Medicine program. The patient ultimately hold up with [facility]. As far as I can tell from faxed records patient has been started on prophylactic enoxaparin based on her history of previous pulmonary embolism. However the patient says that although she received the prescription about a week ago she has only taken 1 dose of this medication. The patient says that yesterday evening at around 18:30 she developed sharp right-sided chest pain and shortness of breath. Pain lasted awhile but eventually subsided and she went to sleep. This morning the pain returned for awhile but again subsided. This afternoon she went to [employer]. While at [employer] she was walking around but then she felt short of breath and ultimately had a family member drive her to the hospital. Related Data Previous Rx's ?Medication ?Instructions ?Recorded azithromycin 250 mg tablet 250 mg PO DAILY 4 days #4 tabs 06/24/24 ipratropium bromide 17 2 puff inhalation QID PRN 06/24/24 mcg/actuation HFA aerosol inhaler shortness of breath or wheezing #12.9 grams prednisone 20 mg tablet 20 mg PO DAILY #12 tabs 06/24/24 Allergies Allergy/AdvReac Type Severity Reaction Status Date / Time No Known Allergies Allergy Verified 07/21/24 18:00 Review of Systems 2 Review of Systems: Yes all other systems are reviewed and are negative [facility] Social History Social History Alcohol intake: former Advance Directives: No Advance Directives Information Provided: No Physical Exam ED Vital Signs: Vital Signs - 24 hr 07/21/24 17:55 07/21/24 18:10 07/21/24 18:24 Temperature 98.8 F 99.2 F Pulse Rate 134 H 130 H 120 H Respiratory Rate 20 28 H 18 Blood Pressure 109/59 L 112/56 L Pulse Oximetry 91 L 98 Oxygen Delivery Method Room Air Nasal Cannula Oxygen Flow Rate 4 07/21/24 20:00 07/21/24 20:49 07/21/24 21:30 Temperature 99.4 F 99.2 F Pulse Rate 135 H 128 H 130 H Respiratory Rate 18 26 H 22 H Blood Pressure 124/49 L 112/59 L Pulse Oximetry 96 92 Oxygen Delivery Method Nasal Cannula Nasal Cannula Oxygen Flow Rate 2 2 BMI result Body Mass Index 19.6 Const Other: The patient is a thin the small woman who was obviously . She looked uncomfortable and short of breath and quite ill. HENMT Other: Face is symmetrical. Mucous membranes moist. Eyes General: appearance normal, both eyes and all related structures Neck Neck: Yes no JVD Chest Other: There is right-sided chest wall tenderness of the lower chest wall in the anterior axillary line. Resp Other: The patient was exhibiting tachypnea and increased work of breathing. There were wheezes bilaterally Cardio Rate: tachycardic Rhythm: regular rhythm Heart sounds: S1 normal heart sound present and S2 normal heart sound present GI Other: The patient has a gravid abdomen. No abdominal tenderness. Skin Other: Skin is dry and unremarkable Neuro Other: The patient is awake and alert. Mental status is normal. She is appropriately oriented. Cranial nerves are grossly intact. She moves her extremities normally and appropriately. Extrem Other: No calf swelling or tenderness. No asymmetry. Course Course Course Narrative: This is a Rapid Medical Examination (RME) performed by Malgorzata Miguel PA-C in triage. Full HPI, ROS, assessment and treatment plan per primary provider in the Main ED. 24 yo female 29 wks here for eval of intermittent RUQ abdominal pain radiating to right flank x24 hours. reports assoc sob with pain on deep breathing. denies smoking cigarettes or vaping. Denies fever, chills, vaginal bleeding, vaginal discharge. Reports having ultrasound confirming intrauterine however does not have an appointment with an OB until next week in [place]. reports feeling the baby move. + satting 91% on RA. lungs sounds diminished to right base however difficult to determine as patient cannot take a deep breath d/t pain Plan: labs, UA, viral swabs Medications Administered Discontinued Medications Generic Name Dose Route Start Last Admin Trade Name Remington PRN Reason Stop Dose Admin Acetaminophen 975 mg 07/21/24 20:26 07/21/24 20:40 Acetaminophen 325 Mg Tablet PO 07/21/24 20:27 975 mg ONCE ONE Administration Levalbuterol HCl 1.25 mg/ 0 mg 07/21/24 18:08 07/21/24 18:23 Ipratropium [place] 0.5 mg INHALE 07/21/24 18:09 5 dose ONCE ONE Administration Levalbuterol HCl 1.25 mg/ 0 mg 07/21/24 20:42 07/21/24 20:48 Ipratropium [place] 0.5 mg INHALE 07/21/24 20:43 5.5 dose ONCE ONE Administration Prednisone 60 mg 07/21/24 20:25 07/21/24 20:40 Prednisone 20 Mg Tablet PO 07/21/24 20:26 60 mg ONCE ONE Administration Medical Decision Making Medical Decision Making MDM Narrative: The patient arrived looking quite unwell. She looked uncomfortable, short of breath, tachypneic, and tachycardic. She was holding her right chest her area of discomfort. Oxygen saturations on room air wre as low as 88%. The patient was placed on supplemental oxygen. She was given a Xopenex/ipratropium updraft. Labs were sent. She was consented for a chest x- ray. This was unremarkable. Her D-dimer was elevated although her troponin and BNP were not elevated. She was consented also for a CT pulmonary angiogram which I felt was given her elevated D-dimer, her tachycardia, her tachypnea, her low oxygen saturations, and her history of a previous pulmonary embolism. The CT pulmonary angiogram did not show any pulmonary embolism or other acute process. She seemed to feel better with updrafts. She was also given 60 mg of oral prednisone. Despite feeling better she continued to have an oxygen requirement. I feel the patient should be hospitalized for what at this point I suspect is an asthma exacerbation. She still seems to have a lot of right-sided pleuritic pain that I assume is musculoskeletal. I think her abdomen seems benign. The patient has a complex medical history including a history of myelofibrosis, previous pulmonary embolism, asthma, and an episode of pyelonephritis during this . Given problems I felt that hospitalization at [facility] where she has been evaluated by the Maternal Health Clinic would be appropriate. I contacted the transfer center and the patient has been accepted Center for further care. Lab Data 07/21/24 18:24 07/21/24 18:24 Labs: Lab Results 07/21/24 07/21/24 07/21/24 Range/Units 18:24 18:28 18:34 WBC 11.5 H (4.8-10.8) X10*3/uL RBC 4.44 (4.20-5.50) X10*6/uL Hgb 10.9 L (12.0-16.0) g/dl Hct 33.8 L (37.0-47.0) % MCV 76.1 L (80.0-98.0) fL MCH 24.5 L (27.0-33.0) pg MCHC 32.2 (31.0-35.0) g/dl RDW 15.7 (11.0-16.0) % Plt Count 210 D (160-400) X10*3/uL MPV 9.7 (9.4-12.3) fL Immature Gran % (Auto) 0.9 H (0.0-0.4) % Neut % (Auto) 78.3 H (45-73) % Lymph % (Auto) 14.7 L (20-40) % [place] % (Auto) 4.7 (2-11) % Eos % (Auto) 1.2 (0-4) % Baso % (Auto) 0.2 (0-2) % Lymph # (Auto) 1.7 (1.2-4.9) X10*3/uL [place] # (Auto) 0.5 (0.1-1.2) X10*3/uL Eos # (Auto) 0.1 (0.0-0.4) X10*3/uL Baso # (Auto) 0.0 (0.0-0.2) X10*3/uL Abs Immat Gran (auto) 0.10 H (0.00-0.03) X10*3/uL Absolute Neuts (auto) 9.0 H (2.0-8.3) x10*3/uL Absolute Nucleated RBC 0.000 (0.0-0.012) X10*3/uL Nucleated RBC % (auto) 0.0 (0.0-0.2) /100WBC aPTT Heparin Protocol 33.2 L (53-77.9) SEC D-Dimer High Sensitivty 479 NG/ML VBG pH 7.38 (7.32-7.43) VBG pCO2 40 mmHg VBG pO2 37 mmHg VBG HCO3 24 (22-26) mmol/L VBG O2 Saturation 47.0 % VBG Base Excess -0.7 mmol/L Sodium 135 (135-145) mmol/L Potassium 3.7 (3.3-5.1) mmol/L Chloride 102 (96-108) mmol/L Carbon Dioxide 22 (22-29) mmol/L Anion Gap 15 (12-20) BUN 6 L (9-16) mg/dL Creatinine 0.58 (0.5-1.4) mg/dL Estim Creat Clear Calc 111.4 Estimated GFR > 60 Random Glucose 96 (60-115) mg/dL Calcium 9.5 (8.4-10.2) mg/dL Magnesium 1.5 L (1.6-2.6) mg/dL Total Bilirubin 1.2 H (0.0-1.0) mg/dL Direct Bilirubin 0.4 (0.0-0.5) mg/dL AST 8 (5-31) U/L ALT 11 (0-31) U/L Alkaline Phosphatase 129 H (39-117) U/L Troponin I High Sens < 2.7 (<3.5-17.0) ng/L B-Natriuretic Peptide < 10 (<100) pg/mL Total Protein 6.4 L (6.5-8.0) g/dL Albumin 3.7 (3.5-5.0) g/dL Lipase 8 (8-78) U/L Urine Color Urine Appearance Urine pH (5.0-9.0) Ur Specific [place] (1.005-1.025) Urine Protein (Neg-Trace) mg/dL Urine Glucose (UA) (Negative) mg/dL Urine Ketones (Negative) mg/dL Urine Blood (Negative) Urine Nitrite (Negative) Ur Leukocyte Esterase (Negative) Urine RBC (0-2) /HPF Urine WBC (0-5) /HPF Ur Squamous Epith Cells (0-2) /HPF Urine Bacteria (None Seen) Hyaline Casts (0-2) /LPF Urine Test (NEGATIVE) Influenza Type A (PCR) NEGATIVE (Negative) Influenza Type B (PCR) NEGATIVE (Negative) RSV RNA Qual (PCR) NEGATIVE (Negative) SARS-CoV-2 RNA (RT-PCR) NEGATIVE (Negative) 07/21/24 Range/Units 22:59 WBC (4.8-10.8) X10*3/uL RBC (4.20-5.50) X10*6/uL Hgb (12.0-16.0) g/dl Hct (37.0-47.0) % MCV (80.0-98.0) fL MCH (27.0-33.0) pg MCHC (31.0-35.0) g/dl RDW (11.0-16.0) % Plt Count (160-400) X10*3/uL MPV (9.4-12.3) fL Immature Gran % (Auto) (0.0-0.4) % Neut % (Auto) (45-73) % Lymph % (Auto) (20-40) % [place] % (Auto) (2-11) % Eos % (Auto) (0-4) % Baso % (Auto) (0-2) % Lymph # (Auto) (1.2-4.9) X10*3/uL [place] # (Auto) (0.1-1.2) X10*3/uL Eos # (Auto) (0.0-0.4) X10*3/uL Baso # (Auto) (0.0-0.2) X10*3/uL Abs Immat Gran (auto) (0.00-0.03) X10*3/uL Absolute Neuts (auto) (2.0-8.3) x10*3/uL Absolute Nucleated RBC (0.0-0.012) X10*3/uL Nucleated RBC % (auto) (0.0-0.2) /100WBC aPTT Heparin Protocol (53-77.9) SEC D-Dimer High Sensitivty NG/ML VBG pH (7.32-7.43) VBG pCO2 mmHg VBG pO2 mmHg VBG HCO3 (22-26) mmol/L VBG O2 Saturation % VBG Base Excess mmol/L Sodium (135-145) mmol/L Potassium (3.3-5.1) mmol/L Chloride (96-108) mmol/L Carbon Dioxide (22-29) mmol/L Anion Gap (12-20) BUN (9-16) mg/dL Creatinine (0.5-1.4) mg/dL Estim Creat Clear Calc Estimated GFR Random Glucose (60-115) mg/dL Calcium (8.4-10.2) mg/dL Magnesium (1.6-2.6) mg/dL Total Bilirubin (0.0-1.0) mg/dL Direct Bilirubin (0.0-0.5) mg/dL AST (5-31) U/L ALT (0-31) U/L Alkaline Phosphatase (39-117) U/L Troponin I High Sens (<3.5-17.0) ng/L B-Natriuretic Peptide (<100) pg/mL Total Protein (6.5-8.0) g/dL Albumin (3.5-5.0) g/dL Lipase (8-78) U/L Urine Color Yellow Urine Appearance Clear Urine pH 7.0 (5.0-9.0) Ur Specific [place] >= 1.030 H (1.005-1.025) Urine Protein Trace (Neg-Trace) mg/dL Urine Glucose (UA) Negative (Negative) mg/dL Urine Ketones Negative (Negative) mg/dL Urine Blood Negative (Negative) Urine Nitrite Negative (Negative) Ur Leukocyte Esterase Small (1+) H (Negative) Urine RBC 0-2 (0-2) /HPF Urine WBC 0-5 (0-5) /HPF Ur Squamous Epith Cells 3-5 (0-2) /HPF Urine Bacteria Trace (None Seen) Hyaline Casts 0-2 (0-2) /LPF Urine Test POSITIVE H (NEGATIVE) Influenza Type A (PCR) (Negative) Influenza Type B (PCR) (Negative) RSV RNA Qual (PCR) (Negative) SARS-CoV-2 RNA (RT-PCR) (Negative) Discharge Plan Discharge Clinical Impression: Shortness of breath, Allergic asthma with acute exacerbation, Right-sided chest pain, Tachypnea, Tachycardia, Hypoxia, 29 weeks gestation of Patient Disposition: [facility] Transfer Details: [facility], need for obstetrical availability Prescriptions: No Action prednisone 20 mg tablet 20 mg PO DAILY Qty: 12 0RF Rx Instructions: Take 3 tablets daily x2 days then 2 tablets daily x3 days azithromycin 250 mg tablet 250 mg PO DAILY 4 Days Qty: 4 0RF Rx Instructions: start on day 2 of therapy ipratropium bromide 17 mcg/actuation HFA aerosol inhaler 2 puff inhalation QID PRN (Reason: shortness of breath or wheezing) Qty: 12.9 0RF Discharge Date/Time: 07/22/24 00:45 Print Language: Tanzanian
--- NOTE | 2024-07-21 18:09 | ECG_ITS ---
Test Reason : SOB Blood Pressure : / mmHG Vent. Rate : 126 BPM Atrial Rate : 126 BPM P-R Int : 126 ms QRS Dur : 066 ms QT Int : 288 ms P-R-T Axes : 068 074 071 degrees QTc Int : 417 ms Sinus tachycardia Low voltage QRS Borderline ECG When compared with ECG of 06-JUL-2024 03:41, No significant change was found Referred By: Juventino Correa Electronically Signed By:CARMEN PADRON MD
--- NOTE | 2024-07-21 18:09 | PC.NURSE ---
Pt. on cardiac and continuous SPO2 monitor at this time. Abner Correa MD at bedside.
[2024-07-21 18:10] VITALS: BP 112/56; PULSE 130; RESP 28; TEMP 37.3; O2SAT 98
[2024-07-21] MEDS: levalbuterol HCL 1.25 MG, Ipratropium Bromide 0.5 MG INHALE ×2 (18:23→20:48)
[2024-07-21 18:24] VITALS: PULSE 120; RESP 18; O2SAT 98
[2024-07-21 18:29] LABS: MANUAL DIFF FLAG NO
[2024-07-21 18:33] LABS: VBG Base Excess -0.7 mmol/L; VBG HCO3 24 mmol/L (22-26); VBG pCO2 40 mmHg; VBG pH 7.38 (7.32-7.43); VBG pO2 37 mmHg
[2024-07-21 18:33] LABS: Venous Blood Gas Refer to POC result
--- NOTE | 2024-07-21 18:33 | PC.NURSE ---
20G inserted to RAC. Tolerated well. Good blood return.
--- NOTE | 2024-07-21 18:33 | PC.NURSE ---
HR = 163
[2024-07-21 18:46] LABS: Basophils Percent Auto 0.2 % (0-2); Eosinophils Absolute Auto 0.1 X10*3/uL (0.0-0.4); Eosinophils Percent Auto 1.2 % (0-4); Hematocrit 33.8 % (37.0-47.0); Hemoglobin 10.9 g/dl (12.0-16.0); Imm Gran Pct Auto 0.9 % (0.0-0.4); Lymphocytes Absolute Auto 1.7 X10*3/uL (1.2-4.9); Lymphocytes Percent Auto 14.7 % (20-40); Mean Corpuscular HGB Conc 32.2 g/dl (31.0-35.0); Mean Corpuscular Hemoglobin 24.5 pg (27.0-33.0); Mean Corpuscular Volume 76.1 fL (80.0-98.0); Mean Platelet Volume 9.7 fL (9.4-12.3); Monocytes Absolute Auto 0.5 X10*3/uL (0.1-1.2); Monocytes Percent Auto 4.7 % (2-11); Neutrophils Percent Auto 78.3 % (45-73); Platelet Count 210 X10*3/uL (160-400); Red Blood Count 4.44 X10*6/uL (4.20-5.50); Red Cell Distribution Width 15.7 % (11.0-16.0); White Blood Count 11.5 X10*3/uL (4.8-10.8)
[2024-07-21 18:49] LABS: D Dimer High Sensitivity 479 NG/ML
[2024-07-21 18:50] LABS: Lipase 8 U/L (8-78); Magnesium 1.5 mg/dL (1.6-2.6); PTT Heparin Drip 33.2 SEC (53-77.9)
[2024-07-21 18:52] LABS: Alanine Aminotransferase 11 U/L (0-31); Albumin Level 3.7 g/dL (3.5-5.0); Alkaline Phosphatase 129 U/L (39-117); Anion Gap 15 (12-20); Aspartate Amino Transferase 8 U/L (5-31); Bilirubin Direct 0.4 mg/dL (0.0-0.5); Bilirubin Total 1.2 mg/dL (0.0-1.0); Blood Urea Nitrogen 6 mg/dL (9-16); Calcium 9.5 mg/dL (8.4-10.2); Carbon Dioxide 22 mmol/L (22-29); Chloride 102 mmol/L (96-108); Creatinine Clr Calc Pharmacy 111.4; Estimated Glomerular Filt Rate > 60; Glucose Random 96 mg/dL (60-115); Potassium 3.7 mmol/L (3.3-5.1); Sodium 135 mmol/L (135-145); Total Protein 6.4 g/dL (6.5-8.0)
[2024-07-21 18:55] LABS: B Type Natriuretic Peptide < 10 pg/mL (<100)
[2024-07-21 19:07] LABS: Troponin-I High Sensitivity < 2.7 ng/L (<3.5-17.0)
[2024-07-21 19:21] LABS: Influenza A PCR NEGATIVE (Negative); Influenza B PCR NEGATIVE (Negative); Resp Syncy Virus RNA Qual PCR NEGATIVE (Negative); SARS COV2 PCR INHOUSE NEGATIVE (Negative)
[2024-07-21 20:00] VITALS: BP 124/49; PULSE 135; RESP 18; TEMP 37.4; O2SAT 96
[2024-07-21] MEDS: predniSONE 20 MG TABLET 60 MG PO (20:40)
[2024-07-21] MEDS: Acetaminophen 325 MG TABLET 975 MG PO (20:40)
[2024-07-21 20:49] VITALS: PULSE 128; RESP 26; O2SAT 95
[2024-07-21 21:30] VITALS: BP 112/59; PULSE 130; RESP 22; TEMP 37.3; O2SAT 92
--- NOTE | 2024-07-21 22:55 | PC.NURSE ---
Called report to [facility] labor and delivery Spoke to RN. Answered all pertinent questions.
[2024-07-21 23:08] LABS: Appearance Urine Clear; Color Urine Yellow; Glucose Urine UA Negative (Negative); Leukocyte Esterase Urine Small (1+) (Negative); Nitrite Urine Negative (Negative); Specific Gravity - Urine >= 1.030 (1.005-1.025); UMIC TRIGGER UACC YES; Urine Blood Negative (Negative); Urine Ketones Negative (Negative); Urine Protein Trace mg/dL (Neg-Trace)
[2024-07-21 23:10] LABS: UPreg QC Valid YES; Urine Pregnancy POSITIVE (NEGATIVE)
[2024-07-21 23:22] LABS: Bacteria Urine Trace (None Seen); Hyaline Casts Urine 0-2 /LPF (0-2); RBC Urine 0-2 /HPF (0-2); UACC Culture Trigger YES; WBC Urine 0-5 /HPF (0-5)
== END 2024-07-22 00:45 | disposition short-term general hospital (02) ==
PROVIDERS: Physician Assistant Medical; Emergency Provider Emergency Medicine
DX: O26.892 Other specified pregnancy related conditions, second trimester (principal); R06.02 Shortness of breath; R07.9 Chest pain, unspecified; O99.512 Diseases of the respiratory system complicating pregnancy, second trimester; J45.901 Unspecified asthma with (acute) exacerbation; O99.891 Other specified diseases and conditions complicating pregnancy; R00.0 Tachycardia, unspecified; R09.02 Hypoxemia; R06.82 Tachypnea, not elsewhere classified; Z3A.29 29 weeks gestation of pregnancy; Z03.818 Encounter for observation for suspected exposure to other biological agents ruled out
CPT/HCPCS: 0241U; 36415; 71045; 71275; 80048; 80076; 81001; 81025; 82803; 83690; 83735; 83880; 84484; 85025; 85379; 85730; 87086; 93005; 94640; 99285

== ENCOUNTER → 2024-07-21 18:09 | Outpatient (BNV) | payer OTHER, SELFPAY | PROVIDERS: Emergency Provider Emergency Medicine; Visit Provider Internal Medicine Cardiovascular Disease | DX: R00.0 Tachycardia, unspecified (principal) | CPT/HCPCS: 93010 ==

== ENCOUNTER 2024-12-04 22:04 | Inpatient (IN) | payer OTHER, SELFPAY ==
--- NOTE | ~2024-12-04 | XR_ITS ---
CLINICAL HISTORY: Cough 1 view chest x-ray Comparison: CR/SR - XR CHEST 1V - 07/21/24 18:16 EDT Findings: Mild left lower lobe atelectasis. No significant pleural effusion or pneumothorax. Heart size is normal. No acute fracture. IMPRESSION: Mild left lower lobe atelectasis. This document has been electronically signed by: Seth Atkinson MD on 12/04/2024 23:15:10
[2024-12-04 22:20] VITALS: BP 90/59; BP 96/52; PULSE 117; PULSE 118; RESP 18; TEMP 37.9; O2SAT 88; O2SAT 94; BMI 21.7
[2024-12-04 23:23] LABS: Influenza A PCR POSITIVE (Negative); Influenza B PCR NEGATIVE (Negative); Resp Syncy Virus RNA Qual PCR NEGATIVE (Negative); SARS COV2 PCR INHOUSE POSITIVE (Negative)
[2024-12-05] VITALS (14 sets, daily range): BP systolic 92–107; BP diastolic 43–64; PULSE 56–113; RESP 16–97; TEMP 36.3–39.2; O2SAT 89–97
[2024-12-05] MEDS: 0.9 % Sodium Chloride 1,000 ML 999 ML IV (00:56)
[2024-12-05] MEDS: Acetaminophen 325 MG TABLET 975 MG PO (00:57)
[2024-12-05] MEDS: Ketorolac Tromethamine 15 MG/ML VIAL IVPUSH (00:57)
--- NOTE | 2024-12-05 03:13 | ED.GENADULT ---
HPI - General Adult General Chief complaint: Headache Stated complaint: flu like symptoms Time Seen by Provider: 12/05/24 00:47 Source: patient Limitations: language barrier History of Present Illness ED Provider: Raysa Brown PA-C HPI narrative: 44-year-old female presents with viral illness. Patient complains of fever, generalized body aches, nausea vomiting, weakness headache and cough. Her children are sick at home with similar symptoms they were diagnosed with influenza. Related Data Previous Rx's ?Medication ?Instructions ?Recorded azithromycin 250 mg tablet 250 mg PO DAILY 4 days #4 tabs 06/24/24 ipratropium bromide 17 2 puff inhalation QID PRN 06/24/24 mcg/actuation HFA aerosol inhaler shortness of breath or wheezing #12.9 grams prednisone 20 mg tablet 20 mg PO DAILY #12 tabs 06/24/24 Allergies Allergy/AdvReac Type Severity Reaction Status Date / Time No Known Allergies Allergy Verified 12/04/24 22:23 Review of Systems Review of Systems: Yes all other systems are reviewed and are negative Constitutional: Constitutional: Reports fatigue, Reports fever(s) and Reports malaise Cardiovascular: Cardiovascular: Denies chest pain and Reports dyspnea Respiratory: Respiratory: Reports cough, Reports dyspnea and Denies wheezing Gastrointestinal: Gastrointestinal: Denies abdominal pain, Reports nausea and Reports vomiting Musculoskeletal: Musculoskeletal: Reports myalgias Endocrine: Endocrine: Reports fatigue Allergic/Immunologic: Allergic/Immunologic: Denies wheezing PMFSH Past Medical History Attestation statement: The following information was validated with the patient. Social History Social History Alcohol intake: former Smoked in Last 30 Days: No Use of substances other than those prescribed or required for medical reasons: No Advance Directives: No Do you have a plan to hurt others: No Plan Patient : No Physical Exam ED Vital Signs: Vital Signs - 24 hr 12/04/24 22:20 12/05/24 00:44 12/05/24 02:23 Temperature 100.2 F 102.5 F H 99.0 F Pulse Rate 118 H 113 H 94 Respiratory Rate 18 18 16 Blood Pressure 90/59 L 102/54 L 94/43 L Pulse Oximetry 94 95 93 Oxygen Delivery Method Nasal Cannula Nasal Cannula Room Air Oxygen Flow Rate 2 BMI result Body Mass Index 21.7 Const Other: Alert, ill in appearance Orientation/consciousness: patient oriented x3 Resp Other: lungs clear to auscultation Cardio Other: normal peripheral perfusion Skin Other: warm dry no rash Neuro General: patient oriented x3, gait normal, no focal motor deficits and CN's II-XI intact bilaterally Psych Other: cooperative Course Reevaluation(s) Reevaluation #1: temperature improved heart rate improved, we ambulated the patient her oxygen in his fluctuating between 87 and 93 primarily 87, we will be admitting. We will be giving Decadron, Time: 03:32 Medications Administered Discontinued Medications Generic Name Dose Route Start Last Admin Trade Name Remington PRN Reason Stop Dose Admin Acetaminophen 975 mg 12/05/24 00:53 12/05/24 00:57 Acetaminophen 325 Mg Tablet PO 12/05/24 00:54 975 mg ONCE ONE Administration Sodium Chloride 1,000 mls @ 999 mls/hr 12/05/24 01:00 12/05/24 02:24 Ns IV 12/05/24 02:00 Infused .Q1H1M JUSTIN Infusion Ketorolac Tromethamine 15 mg 12/05/24 00:53 12/05/24 00:57 Ketorolac Tromethamine 15 Mg/Ml Vial IVPUSH 12/05/24 00:54 15 mg ONCE ONE Administration Medical Decision Making Medical Decision Making MDM Narrative: 44-year-old female presents with viral illness. Patient complains of fever, generalized body aches, nausea vomiting, weakness headache and cough. Her children are sick at home with similar symptoms they were diagnosed with influenza. problem: Sick contacts with influenza History: Per patient I have considered the following differential diagnoses: Viral syndrome, pneumonia, bronchitis Plan: Patient tested positive for influenza and COVID, her chest x-ray is clear. she is febrile and tachycardic, we will be giving IV fluid Toradol and Tylenol. I have independently reviewed the following tests: Labs: Leukocytosis with left shift, not anemic, magnesium is subtly low at 1.5, viral panel positive for COVID and influenza Chest x-ray:Findings: Mild left lower lobe atelectasis. No significant pleural effusion or pneumothorax. Heart size is normal. No acute fracture. IMPRESSION: Mild left lower lobe atelectasis. This document has been electronically signed by: Seth Atkinson MD on 12/04/2024 23:15:10 Lab Data Labs: Lab Results 12/04/24 Range/Units 22:25 Influenza Type A (PCR) POSITIVE A (Negative) Influenza Type B (PCR) NEGATIVE (Negative) RSV RNA Qual (PCR) NEGATIVE (Negative) SARS-CoV-2 RNA (RT-PCR) POSITIVE A (Negative) Discharge Plan Discharge Patient Disposition: Admitted As Inpatient Prescriptions: No Action prednisone 20 mg tablet 20 mg PO DAILY Qty: 12 0RF Rx Instructions: Take 3 tablets daily x2 days then 2 tablets daily x3 days azithromycin 250 mg tablet 250 mg PO DAILY 4 Days Qty: 4 0RF Rx Instructions: start on day 2 of therapy ipratropium bromide 17 mcg/actuation HFA aerosol inhaler 2 puff inhalation QID PRN (Reason: shortness of breath or wheezing) Qty: 12.9 0RF Print Language: Khmer
[2024-12-05] MEDS: dexAMETHasone sod phosphate 10 MG/ML VIAL IVPUSH (03:30)
[2024-12-05] MEDS: Magnesium Sulfate/H2O 2 GM/50 ML PIGGYBACK IV (04:07)
--- NOTE | 2024-12-05 05:55 | P.HPHOSP_ITS ---
History of Present Illness Date of Service: 12/05/24 Chief Complaint: Cough This has a 24-year-old female with pertinent history of asthma not on home oxygen who presented to the emergency department for evaluation of cough and dyspnea. Patient states her symptoms started 1 day prior to presentation. He has been having generalized body ache, headache, fevers and chills. Also has been having productive cough with clear sputum production. She does have sick contacts at home who were positive for influenza A. Endorses shortness of breath which is worse with exertion. Had 1 episode of nausea and vomiting. Has been having weakness and easy fatigability. Is compliant with her home inhaler for asthma. No chest pain, palpitations, abdominal pain, changes in urinary or bowel habits. In the emergency department, patient found to be positive for COVID-19 and influenza a. O2 sat dropped to 87% with ambulation. Review of Systems Constitutional: Constitutional: Reports fatigue, Reports headache(s), Reports lethargy, Reports malaise and Reports weakness ENT: Reports headache(s) Cardiovascular: Cardiovascular: Reports no additional cardiovascular complaints and Reports dyspnea on exertion Respiratory: Respiratory: Reports cough, Reports dyspnea on exertion and Reports wheezing Gastrointestinal: Gastrointestinal: Reports no additional gastrointestinal complaints Genitourinary: Genitourinary: Reports no additional female genitourinary complaints Neurologic: Reports headache(s) and Reports weakness Endocrine: Endocrine: Reports fatigue Allergic/Immunologic: Allergic/Immunologic: Reports wheezing [facility] Medical History Asthma Pertinent family history: No family history of early CAD Social History Alcohol intake: former Smoked in Last 30 Days: No Use of substances other than those prescribed or required for medical reasons: No Advance Directives: No Do you have a plan to hurt others: No Plan Patient : No Meds Allergies Allergy/AdvReac Type Severity Reaction Status Date / Time No Known Allergies Allergy Verified 12/04/24 22:23 Active Medications: Current Medications Albuterol/Ipratropium (Albuterol/Iprat 2.5/0.5mg 3 Ml Ampul.Neb) 3 ml INHALE RQ4H WHILE AWAKE JUSTIN Albuterol/Ipratropium (Albuterol/Iprat 2.5/0.5mg 3 Ml Ampul.Neb) 3 ml INHALE Q4H PRN PRN Reason: Wheezing Dexamethasone (Dexamethasone 6 Mg Tablet) 6 mg PO DAILY [facility] Lactated Ringer's (Lr) 1,000 mls @ 999 mls/hr IV .Q1H1M [facility] Stop: 12/05/24 07:00 Oseltamivir Phosphate (Oseltamivir Phosphate 75 Mg Capsule) 75 mg PO Q12H [facility] Stop: 12/09/24 18:01 Physical Exam Vital Signs and Narrative: Vital Signs: Last Vital Signs Temp 98.6 F 12/05/24 03:29 Pulse 79 12/05/24 03:29 Resp 16 12/05/24 03:29 BP 93/48 L 12/05/24 03:29 Pulse Ox 95 12/05/24 03:29 O2 Del Method Room Air 12/05/24 03:29 O2 Flow Rate 2 12/05/24 00:44 Oxygen Flow Rate 2 12/04/24 22:20 BMI result Body Mass Index 21.7 Young female lying in bed in no distress Neck supple, no JVD Regular rate and rhythm, S1-S2 heard Bilateral wheezing appreciated Abdomen soft nontender, no guarding, no rigidity Patient is awake, alert and oriented to self, place, time and person ; no focal motor deficit Psych: Normal mood No pedal edema Results Labs Labs: Laboratory Results - last 24 hr 12/04/24 22:25 Influenza Type A (PCR) POSITIVE A Influenza Type B (PCR) NEGATIVE RSV RNA Qual (PCR) NEGATIVE SARS-CoV-2 RNA (RT-PCR) POSITIVE A Assessment and Plan (1) Hypoxia: Status: Acute (2) Influenza A: Status: Acute (3) COVID: Status: Acute Plan This has a 24-year-old female with pertinent history of asthma not on home oxygen who presented to the emergency department for evaluation of cough and dyspnea. #. Acute ambulatory hypoxia due to COVID-19 and influenza A infection leading to asthma exacerbation: Will admit patient with scheduled and p.r.n. DuoNebs. Initiating systemic steroids and Tamiflu. Continue home inhaler. Oxygen saturation dropped to 87% with ambulation. Labs pending Med rec pending DVT prophylaxis: None. Low risk. Patient is ambulatory Full code Admit as inpatient and will require two night minimum hospital stay for supplemental oxygen, monitoring of respiratory status (as above), which is not possible in a lesser acute setting. Quality Stroke Does the patient have a stroke diagnosis?: No VTE Prior VTE?: No VTE Risk Level:: Medical - low VTE Device Contraindication: Treatment Not Indicated VTE Drug Contraindication: Treatment Not Indicated
[2024-12-05] MEDS: Oseltamivir Phosphate 75 MG CAPSULE PO ×2 (06:39→17:18)
[2024-12-05] MEDS: Lactated Ringers 1,000 ML 999 ML IV ×2 (06:40→20:51)
[2024-12-05] MEDS: Albuterol/Iprat 2.5/0.5MG 3 ML AMPUL.NEB INHALE ×4 (07:00→20:29)
[2024-12-05 07:04] LABS: Eosinophils Percent Auto 0.3 % (0-4); Hematocrit 36.3 % (37.0-47.0); Hemoglobin 11.6 g/dl (12.0-16.0); Imm Gran Abs Auto 0.03 X10*3/uL (0.00-0.03); Imm Gran Pct Auto 0.8 % (0.0-0.4); Lymphocytes Absolute Auto 1.3 X10*3/uL (1.2-4.9); Lymphocytes Percent Auto 33.2 % (20-40); Mean Corpuscular Hemoglobin 26.4 pg (27.0-33.0); Mean Corpuscular Volume 82.5 fL (80.0-98.0); Mean Platelet Volume 11.5 fL (9.4-12.3); Monocytes Absolute Auto 0.2 X10*3/uL (0.1-1.2); Monocytes Percent Auto 4.9 % (2-11); Neutrophils Absolute Auto 2.4 x10*3/uL (2.0-8.3); Neutrophils Percent Auto 60.8 % (45-73); Red Cell Distribution Width 15.3 % (11.0-16.0); White Blood Count 3.9 X10*3/uL (4.8-10.8)
[2024-12-05 07:05] LABS: Platelet Count 61 X10*3/uL (160-400)
[2024-12-05 07:06] LABS: MANUAL DIFF FLAG SCAN
[2024-12-05 07:22] LABS: Alanine Aminotransferase 35 U/L (0-31); Albumin Level 3.7 g/dL (3.5-5.0); Alkaline Phosphatase 71 U/L (39-117); Anion Gap 11 (12-20); Aspartate Amino Transferase 37 U/L (5-31); Bilirubin Total 1.5 mg/dL (0.0-1.0); Blood Urea Nitrogen 9 mg/dL (9-16); Calcium 8.5 mg/dL (8.4-10.2); Carbon Dioxide 22 mmol/L (22-29); Chloride 111 mmol/L (96-108); Creatinine Clr Calc Pharmacy 100.6; Estimated Glomerular Filt Rate > 60; Glucose Random 110 mg/dL (60-115); HCG Quantitative < 2 mIU/mL; Potassium 4.1 mmol/L (3.3-5.1); Sodium 140 mmol/L (135-145); Total Protein 5.8 g/dL (6.5-8.0)
--- NOTE | 2024-12-05 07:40 | PC.NURSE ---
pt is alert and oriented, skin appropriate for ethnicity but slightly clammy, respirations even and unlabored, ls clear but was found at rest with her oxygen reading at 89% on room air, pt put on 2l via nasal cannual
[2024-12-05] MEDS: Azithromycin 500 MG in 0.9 % Sodium Chloride 250 ML 125 MG IV (07:50)
[2024-12-05] MEDS: cefTRIAXone sodium 1 GM VIAL IVPUSH (07:50)
[2024-12-05 08:10] LABS: Lactic Acid 0.7 mmol/L (0.5-2.0)
--- NOTE | 2024-12-05 08:38 | PHA.MEDREC ---
Addendum entered by Shahram Metz RPh 12/05/24 08:54: Med rec was reviewed by Darcy. Original Note: Pharmacy Consult ? Medication Reconciliation Pharmacy has completed the medication reconciliation. Spoke with patient and utilizing sample card maker. She confirmed she is only taking the Breo Ellipta once daily, the Albuterol Nebulization solution and inhalers as needed and Tylenol 325mg 2 tabs as needed for pain/headaches. She confirmed she took the Tylenol last 2 days ago.
[2024-12-05 08:48] LABS: SLIDE REVIEW VERIFIED
[2024-12-05] MEDS: dexAMETHasone 6 MG TABLET PO (10:41)
[2024-12-05] MEDS: Acetaminophen 325 MG TABLET 650 MG PO ×2 (10:42→17:17)
[2024-12-05] MEDS: ondansetron HCL 4 MG/2 ML VIAL IVPUSH (10:49)
--- NOTE | 2024-12-05 14:14 | PM.EVENT ---
Event Note Date of Service: 12/05/24 Event Note: 24-year-old female with pertinent history of asthma not on home oxygen who presented to the emergency department for evaluation of cough and dyspnea. Acute hypoxia due to COVID-19 and influenza A infection leading to asthma exacerbation scheduled and p.r.n. DuRadhabs. Initiating systemic steroids and Tamiflu. Continue home inhaler. Oxygen saturation to keep labs >90% Transaminitis likely secondary to viral infection DVT prophylaxis: None. Low risk. Patient is ambulatory Full code Time Spent With Patient Time: Total time managing care of this patient today ____ minutes.
[2024-12-05] MEDS: 0.9 % Sodium Chloride Flush 3 ML SYRINGE IVFLUSH (17:18)
[2024-12-05] MEDS: Ketorolac Tromethamine 30 MG/ML VIAL IVPUSH (22:33)
[2024-12-06] VITALS (9 sets, daily range): BP systolic 89–102; BP diastolic 46–61; PULSE 49–83; RESP 17–20; TEMP 36.2–37; O2SAT 90–99
[2024-12-06] MEDS: Melatonin 3 MG TABLET 6 MG PO (00:36)
[2024-12-06] MEDS: Benzonatate 100 MG CAPSULE PO (00:36)
[2024-12-06] MEDS: 0.9 % Sodium Chloride Flush 3 ML SYRINGE IVFLUSH ×2 (00:36→08:02)
[2024-12-06] MEDS: Milk of Magnesia 30 ML ORAL.SUSP PO (00:59)
[2024-12-06] MEDS: Lactated Ringers 1,564.89 ML 1564.89 ML IV (01:00)
[2024-12-06] MEDS: Oseltamivir Phosphate 75 MG CAPSULE PO (06:33)
[2024-12-06] MEDS: Acetaminophen 325 MG TABLET 650 MG PO (06:33)
[2024-12-06 06:45] LABS: MANUAL DIFF FLAG NO
[2024-12-06 06:50] LABS: Eosinophils Percent Auto 0.3 % (0-4); Hematocrit 32.9 % (37.0-47.0); Hemoglobin 10.9 g/dl (12.0-16.0); Imm Gran Abs Auto 0.02 X10*3/uL (0.00-0.03); Imm Gran Pct Auto 0.7 % (0.0-0.4); Lymphocytes Absolute Auto 1.5 X10*3/uL (1.2-4.9); Lymphocytes Percent Auto 48.4 % (20-40); Mean Corpuscular HGB Conc 33.1 g/dl (31.0-35.0); Mean Corpuscular Volume 81.6 fL (80.0-98.0); Mean Platelet Volume 11.7 fL (9.4-12.3); Monocytes Absolute Auto 0.3 X10*3/uL (0.1-1.2); Monocytes Percent Auto 8.5 % (2-11); Neutrophils Absolute Auto 1.3 x10*3/uL (2.0-8.3); Neutrophils Percent Auto 42.1 % (45-73); Platelet Count 55 X10*3/uL (160-400); Red Blood Count 4.03 X10*6/uL (4.20-5.50); Red Cell Distribution Width 15.5 % (11.0-16.0); White Blood Count 3.1 X10*3/uL (4.8-10.8)
[2024-12-06 07:06] LABS: Anion Gap 9 (12-20); Blood Urea Nitrogen 8 mg/dL (9-16); Calcium 8.3 mg/dL (8.4-10.2); Carbon Dioxide 26 mmol/L (22-29); Chloride 114 mmol/L (96-108); Creatinine Clr Calc Pharmacy 112.8; Estimated Glomerular Filt Rate > 60; Glucose Random 93 mg/dL (60-115); Potassium 4.4 mmol/L (3.3-5.1); Sodium 145 mmol/L (135-145)
[2024-12-06] MEDS: dexAMETHasone 6 MG TABLET PO (08:02)
[2024-12-06] MEDS: Albuterol/Iprat 2.5/0.5MG 3 ML AMPUL.NEB INHALE ×3 (08:27→15:23)
--- NOTE | 2024-12-06 09:49 | MHC.CM.PN ---
Addendum entered by Luda Zaragoza, RICHELLE 12/06/24 13:53: PT'S RN REQUESTED CM CONTACT PT'S [employer] DR. PARKER'S OFFICE AT [phone], PER [employer] PT'S NEXT APPT IS December AT 10:15AM, THEY DID REPORTS PT GOES TO [facility] FOR INFUSIONS HOWEVER WERE UNSURE WHAT HER SCHEDULE IS, CM CONTACTED [facility] HOWEVER HAD TO LEAVE A DETAILED MESSAGE W/REQUEST FOR THEM TO CALL PT OR CM BACK. Original Note: EMR REVIEWED, PT W/FLU A/COVID, CM MET /PT VIA PATTERN ROOM ATTENDANT, PT REPORTS SHE LIVES W/HER GPARENTS, 4MONTH OLD BABY AND 8YO, PT IS FULLY INDEP W/ALL CARE , DENIES USE OF DME/SERVICES, GOAL FOR PT IS TO DC TO GO TO HER [facility] APPT [facility] TOMORROW 12/07 PT IS UNABLE TO GET INFUSION WHILE INPT., PT REPORTS SHE CAN'T MISS HER APPT. PT DOES NOT HAVE A PCP, PT REPORTS HER [employer] WANTED HER TO SEE DR. LANRE HEIN FOR PCP, PT PROVIDED W/[facility] AND PT REPORTS SHE WILL CALL. PT EDUCATED ON AND DECLINES TO COMPLETE A HCP AT THIS TIME.
[2024-12-06] MEDS: Lactated Ringers 1,000 ML 100 ML IVCONT (11:07)
--- NOTE | 2024-12-06 13:56 | PM.HEMONCCN ---
Subjective - Subjective Chief complaint: Low platelets Patient: new to practice Consult date: 12/06/24 Primary Care Provider: Unknown Physician Solids Control Technician Utilized?: Yes - Language Ad Operations Intern HPI - Consult Narrative Reason for consult: Thrombocytopenia, history of myelofibrosis Narrative: Tosin Peres is a 24 year old female with history of myelofibrosis who is admitted for hypoxemia secondary to COVID-19 infection and influenza a. She was noted to have low platelets and because of history of myelofibrosis, Hematology consultation was called. Patient was admitted to [facility] in July 2024, 2 para 1 at 29 weeks of because of hypoxemia and parapneumonic effusion. At that time she was seen by Hematology, records from [place] were obtained. Review of records from [facility] indicate that patient was diagnosed with myelofibrosis in 2000 after bone marrow biopsy. She had required multiple transfusions as a child, her last transfusion was in 2018. She had a bone marrow biopsy in 2017 which failed to confirm diagnosis of myelofibrosis. She has not had a repeat bone marrow biopsy ever since. She was lost to follow-up and later when she became and developed complications, she flew to [place]. She was diagnosed with PE in 2020, she received anticoagulation briefly. She then appeared to have an unprovoked PE in 2022 which was felt to be unprovoked. Her 1st was successful. During her 2nd and hospitalization at [facility], she was given therapeutic anticoagulation because of her prior history of PE as well as hypercoagulable state secondary to myelofibrosis. She also has a history of hypogammaglobulinemia, she received IVIG during her admission at [facility], she developed TRALI. At this time she is feeling better. Her hypoxemia has improved. She says she has a follow up with an mental health program director [facility] at [facility] for her hypogammaglobulinemia. She does not have a PCP. She delivered her 2nd baby successfully at [facility]. Review of Systems - Constitutional Reports as per HPI, Reports lack of energy, Reports malaise - Cardiovascular Reports no additional cardiovascular complaints - Respiratory Reports no additional respiratory complaints - Gastrointestinal Reports no additional gastrointestinal complaints - Neurologic Reports headache(s), Reports weakness PMFSH Medical History: Medical History (Last Updated 12/06/24 @ 15:00 by Payton Ingram MD) Asthma Asthma History of pulmonary embolism Hypogammaglobulinemia Myelofibrosis Pneumonia Pyothorax Recurrent right pleural effusion Thrombocytopenia Family History: Family History (Last Updated 12/06/24 @ 15:01 by Payton Ingram MD) Maternal Grandmother Breast CA Social History: Social History (Last Reviewed 12/05/24 @ 05:58 by King Rivera MD) Living Situation History: Household Members: Family Housing: House Do you presently have visiting nurse or other home services: No Alcohol History Details: 1. How often do you have a drink containing alcohol?: a. Never AUDIT-C Alcohol total score: 0 Currently Displaying Signs/Symptoms of Alcohol Withdrawal: No Tobacco History: Patient Tobacco Use Status: Never used Tobacco Smoked in Last 30 Days: No Substance Use History: Use of substances other than those prescribed or required for medical reasons: No Currently Displaying Signs/Symptoms of Drug Intoxication Withdrawal: No Any prior treatment program specific to substance use: No Domestic Abuse History: Have you been hit, kicked, punched, or otherwise hurt by someone within the past year? If so, by whom?: No Do you feel safe in your current relationship?: Yes Is there a partner from a previous relationship who is making you feel unsafe now?: No Healthcare Practices: Spiritual Healthcare Practices: none Advance Directives: Advance Directives: No Advance Directives Information Provided: Advance Directives Information Provided comment: declined Homicidal Assessment: Do you have a plan to hurt others: No Plan Nutrition Assessment: Recently lost weight without trying: Yes How much weight loss: 2-13 pounds Eating poorly because of decreased appetite: No Nutrition screen score: 3 Nutrition Risks: No Nutritional Risk Patient : No : No Poor oral hygiene: No Occupation Assessmet: service: No Home Medications and Allergies Current Medications: Current Medications Acetaminophen (Acetaminophen 325 Mg Tablet) 650 mg PO Q6H PRN PRN Reason: Pain, Mild 1-3,fever,headache Last Admin: 12/06/24 06:33 Dose: 650 mg Albuterol/Ipratropium (Albuterol/Iprat 2.5/0.5mg 3 Ml Ampul.Neb) 3 ml INHALE RQ4H WHILE AWAKE JUSTIN Last Admin: 12/06/24 11:41 Dose: 3 ml Albuterol/Ipratropium (Albuterol/Iprat 2.5/0.5mg 3 Ml Ampul.Neb) 3 ml INHALE Q4H PRN PRN Reason: Wheezing Benzonatate (Benzonatate 100 Mg Capsule) 100 mg PO TID PRN PRN Reason: Cough Last Admin: 12/06/24 00:36 Dose: 100 mg Calcium Carbonate (Calcium Carbonate 750 Mg Tab.Chew) 750 mg PO Q4H PRN PRN Reason: Heartburn Dexamethasone (Dexamethasone 6 Mg Tablet) 6 mg PO DAILY [facility] Last Admin: 12/06/24 08:02 Dose: 6 mg Fluticasone/Vilanterol (Fluticasone/Vilanterol 200/25 Blst.W.Dev) 1 puff INHALE RDAILY [facility] Lactated Ringer's (Lr) 1,000 mls @ 100 mls/hr IVCONT .Q10H [facility] Stop: 12/06/24 20:29 Last Admin: 12/06/24 11:07 Dose: 100 mls/hr Magnesium Hydroxide (Milk Of Magnesia 30 Ml Oral.Susp) 30 ml PO DAILY PRN PRN Reason: Constipation Last Admin: 12/06/24 00:59 Dose: 30 ml Melatonin (Melatonin 3 Mg Tablet) 6 mg PO BEDTIME PRN PRN Reason: Insomnia Last Admin: 12/06/24 00:36 Dose: 6 mg Ondansetron HCl (Ondansetron Hcl 4 Mg/2 Ml Vial) 4 mg IVPUSH Q8H PRN PRN Reason: Nausea and Vomiting Last Admin: 12/05/24 10:49 Dose: 4 mg Oseltamivir Phosphate (Oseltamivir Phosphate 75 Mg Capsule) 75 mg PO Q12H [facility] Stop: 12/09/24 18:01 Last Admin: 12/06/24 06:33 Dose: 75 mg Sodium Chloride (0.9 % Sodium Chloride Flush 3 Ml Syringe) [facility] Last Admin: 12/06/24 08:02 Dose: 3 ml Home Medications ?Medication ?Instructions ?Recorded ?Confirmed ?Type acetaminophen 325 mg tablet 650 mg PO Q6H PRN Pain/Headache 12/05/24 12/05/24 History albuterol sulfate 2.5 mg/3 mL 2.5 mg Q6H PRN wheezing 12/05/24 12/05/24 History (0.083 %) solution for nebulization albuterol sulfate 90 mcg/actuation 2 puff inhalation Q6H PRN wheezing 12/05/24 12/05/24 History aerosol inhaler fluticasone furoate 200 1 ea inhalation DAILY 12/05/24 12/05/24 History mcg-vilanterol 25 mcg/dose inhalation powder (Breo Ellipta) Allergies Allergy/AdvReac Type Severity Reaction Status Date / Time No Known Allergies Allergy Verified 12/04/24 22:23 Physical Exam Vital signs: Vital Signs Temp 98.6 F 12/06/24 08:00 Pulse 72 12/06/24 11:43 Resp 20 12/06/24 11:43 BP 92/46 L 12/06/24 08:00 Pulse Ox 99 12/06/24 08:00 O2 Del Method Room Air 12/06/24 08:00 O2 Flow Rate 2 12/06/24 03:52 Intake & Output 12/05/24 12/06/24 12/06/24 18:59 06:59 18:59 Intake Total 1730 / 4294.89 2564.89 / 4294.89 Balance 1730 / 4294.89 2564.89 / 4294.89 Intake: Intake, Oral Amount 480 / 480 Intake, IV Amount 1250 / 3814.89 2564.89 / 3814.89 Azithromycin 500 mg In 0.9 % 250 / 250 Sodium Chloride 250 ml @ 125 mls/hr IV Q24H ONE Rx#: [id number] Lactated Ringers 1,564.89 ml @ 1000 / 3564.89 2564.89 / 3564.89 1564.89 mls/hr IV .Q1H ONE Rx#: [id number] Other: Meal Refused No NPO No Lunch % Eaten 75% Dinner % Eaten 75% Eating (Feeding) Ability Independent Number of Unmeasured Voids 3 2 Urine Bathroom Bathroom Urine Color Yellow Yellow Last Bowel Movement 12/04/24 Weight 52.163 kg - Constitutional Present: no acute distress, thin - Routine HEENT Exam Head: Present: normal inspection Eye: Present: EOMI, conjunctivae pale - Routine Neck Exam Present: supple - Routine Respiratory Exam Present: CTAB. Absent: accessory muscle use - Routine Cardiovascular Exam Cardiovascular: Present: S1, S2 - Routine Abdominal Exam Present: organomegaly - Routine Extremities Exam Present: pulses intact - Routine Skin Exam Present: intact - Routine Neurological Exam Present: alert, oriented X3 Hem/Onc Consult Result - Labs CBC & Chem 7: 12/06/24 06:36 12/06/24 06:36 Labs: Short CBC 12/06/24 Range/Units 06:36 WBC 3.1 L (4.8-10.8) X10*3/uL Hgb 10.9 L (12.0-16.0) g/dl Hct 32.9 L (37.0-47.0) % Plt Count 55 L (160-400) X10*3/uL BMP 12/06/24 06:36 Sodium 145 Potassium 4.4 Chloride 114 H Carbon Dioxide 26 BUN 8 L Creatinine 0.58 Calcium 8.3 L Assessment and Plan Patient Active problem list reviewed?: Yes (1) Pancytopenia Status: Chronic Assessment and plan: 1. This is a 24-year-old woman with pancytopenia/thrombocytopenia who was diagnosed with myelofibrosis under the age of 1, 2001 in [place]. As per records, she was managed mainly by transfusion support until 2018. Her repeat bone marrow biopsy in 2018 was inconclusive for diagnosis of myelofibrosis. She was supposed to have another bone marrow biopsy but she was lost to follow-up and later during her 2nd in July 2024, she moved to [place]. She had a prolonged hospitalization during her 2nd at [facility] when she was diagnosed with empyema, pneumonia secondary to hypo gamma globulinemia and cytopenia secondary to myelofibrosis. CT abdomen/pelvis did demonstrate splenomegaly. She also has a history of pulmonary embolism in 2020 and 2022. Most recent CT angiogram in 07/2024 was negative for PE as was lower extremity Doppler negative for VTE. She will need further workup of her hematological problem. Repeat bone marrow biopsy we will be performed upon discharge. She does not need any transfusion at this time. I thank you for this referral. - Time Spent With Patient Time Spent with Patient (in minutes): 20 Additional Coding: - Additional E/M codes Complex E/M visit Add On: CPT G2211
--- NOTE | 2024-12-06 14:46 | PM.DS ---
DS: Providers Provider Date of Service: 12/06/24 Date of admission: 12/05/24 06:21 Date of discharge: 12/06/24 Primary care physician: Unknown Physician Consults: 12/06/24 13:13 Consult to Hematology / Oncology Routine Consulting Provider: [facility] Oncology/Hematology Reason for consultation: myelofibrosis, pancytopenia Has provider been notified: No Attending physician on discharge: Nick Garcia Discharging clinician: Gracy Randle DS: Diagnosis Discharge Diagnosis (1) Hypoxia: Status: Acute (2) Influenza A: Status: Acute (3) COVID: Status: Acute DS: Summary Hospital Course Hospital Course: From H&P on the day of admission This has a 24-year-old female with pertinent history of asthma, myelofibrosis, hypogammaglobinemia, not on home oxygen who presented to the emergency department for evaluation of cough and dyspnea. Patient states her symptoms started 1 day prior to presentation. He has been having generalized body ache, headache, fevers and chills. Also has been having productive cough with clear sputum production. She does have sick contacts at home who were positive for influenza A. Endorses shortness of breath which is worse with exertion. Had 1 episode of nausea and vomiting. Has been having weakness and easy fatigability. Is compliant with her home inhaler for asthma. No chest pain, palpitations, abdominal pain, changes in urinary or bowel habits. In the emergency department, patient found to be positive for COVID-19 and influenza a. O2 sat dropped to 87% with ambulation Acute hypoxia due to COVID-19 and influenza A infection leading to acute asthma exacerbation She was treated with scheduled and p.r.n. DuoNebs, steroids and tamiflu. she was able to be weaned off of supplemental oxygen in his ambulating without oxygen or shortness of breath. blood pressure as low likely due to decreased po intake on days leading up to admission. Now tolerating diet, blood pressure improved with IV fluid. Transaminitis likely secondary to viral infection. no abdominal pain. repeat LFTs wnl myelofibrosis Seen by Hematology,recommend outpatient follow up for repeat bone marrow testing and follow up for pancytopenia. pancytopenia cell lines lower then baseline. could be due to acute viral illness. will need to obtain PCP for close follow up and hematology follow up as above. Time Attestation Discharge Coordination Time (in mins): 36 Quality: Safe Use of Opioids Does Pt have an Active Cancer Diagnosis on the Problem List?: No Quality: Stroke Does the patient have a stroke diagnosis?: No Physical Exam Vital Signs: Vital Signs: Last Vital Signs Temp 98.6 F 12/06/24 08:00 Pulse 72 12/06/24 11:43 Resp 20 12/06/24 11:43 BP 92/46 L 12/06/24 08:00 Pulse Ox 99 12/06/24 08:00 O2 Del Method Room Air 12/06/24 08:00 O2 Flow Rate 2 12/06/24 03:52 Oxygen Flow Rate 2 12/04/24 22:20 BMI result Body Mass Index 21.7 Const: General: cooperative, comfortable, no acute distress, alert and awake Nutritional Appearance: thin Orientation/consciousness: patient oriented x3 Resp: Effort & Inspection: normal respiratory effort, able to speak in complete sentences, no respiratory distress and no use of accessory muscles Cardio: Rate: regular rate GI: Inspection: No distended Palpation (GI): Soft to palpation and nontender Neuro: General: patient oriented x3 DS: Data Data Completed and Pending Labs on day of discharge: Laboratory Results - last 24 hr 12/06/24 06:36 WBC 3.1 L RBC 4.03 L Hgb 10.9 L Hct 32.9 L MCV 81.6 MCH 27.0 MCHC 33.1 RDW 15.5 Plt Count 55 L MPV 11.7 Immature Gran % (Auto) 0.7 H Neut % (Auto) 42.1 L Lymph % (Auto) 48.4 H [place] % (Auto) 8.5 Eos % (Auto) 0.3 Baso % (Auto) 0.0 Lymph # (Auto) 1.5 [place] # (Auto) 0.3 Eos # (Auto) 0.0 Baso # (Auto) 0.0 Abs Immat Gran (auto) 0.02 Absolute Neuts (auto) 1.3 L Absolute Nucleated RBC 0.000 Nucleated RBC % (auto) 0.0 Sodium 145 Potassium 4.4 Chloride 114 H Carbon Dioxide 26 Anion Gap 9 L BUN 8 L Creatinine 0.58 Estim Creat Clear Calc 112.8 Estimated GFR > 60 Random Glucose 93 Calcium 8.3 L Preliminary micro results at discharge 12/05/24 07:49 Blood Culture - Preliminary Blood - Venous No growth after 24 hours. 12/05/24 07:49 Blood Culture - Preliminary Blood - Venous No growth after 24 hours. Discharge Plan Discharge Anticipated Discharge Date/Time: 12/06/24 15:24 Patient Disposition: Home, Self-Care Discharge Diagnosis: influenza a covid 19 pancytopenia elevated LFTs Referrals: Chandu Burks DO [Physician] - 1 Week Payton Ingram MD [Physician] - 1 Week Physician,Joel J [Primary Care Provider] - 1 Week Discharge Medications: New oseltamivir [Tamiflu] 75 mg Capsule 75 mg PO Q12H Qty: 7 0RF Continued albuterol sulfate 2.5 mg /3 mL (0.083 %) solution for nebulization 2.5 mg Q6H PRN (Reason: wheezing) albuterol sulfate 90 mcg/actuation HFA aerosol inhaler 2 puff INHALATION Q6H PRN (Reason: wheezing) fluticasone furoate-vilanterol [Breo Ellipta] 200-25 mcg/dose blister with device 1 ea INHALATION DAILY acetaminophen 325 mg Tablet 650 mg PO Q6H PRN (Reason: Pain/Headache) Discharge Orders: Discharge Order (Routine); Ordered 12/06/24 Ordered By: Gracy Randle Activity on Discharge: As tolerated Stand Alone Forms: Patient Portal Discharge page Print Language: Zimbabwean Care Plan Goals: see below Health Concerns: influenza a covid 19 hypoxia with ambulation pancytopenia - follow up with Hematology myelofibrosis - follow up with hematology elevated LFTS - resolved Plan of Treatment: complete course of Tamiflu as prescribed Outpatient follow-up with Hematology for management of myelofibrosis/pancytopenia obtain PCP Assessment: see discharge summary
[2024-12-06 15:13] LABS: Alanine Aminotransferase 28 U/L (0-31); Albumin Level 3.1 g/dL (3.5-5.0); Alkaline Phosphatase 66 U/L (39-117); Aspartate Amino Transferase 26 U/L (5-31); Bilirubin Direct 0.1 mg/dL (0.0-0.5); Bilirubin Total 0.4 mg/dL (0.0-1.0); Total Protein 4.8 g/dL (6.5-8.0)
--- NOTE | 2024-12-06 15:57 | MHC.CM.PN ---
PT MEDICALLY CLEARED FOR DC HOME SELF CARE, PT WILL ARRANGE TRANSPORT.
== END 2024-12-06 15:55 | disposition home or self-care (01) | DRG 720 ==
LOC: HO.ED 12-05 03:35 → HO.EDOVER 12-05 06:25 → HO.IMC 12-05 07:54
PROVIDERS: Admitting Provider Student in an Organized Health Care Education/Training Program; Emergency Provider Emergency Medicine Emergency Medical Services; Visit Provider Physician Assistant Medical
DX: A41.89 Other specified sepsis (principal); U07.1 COVID-19; D61.818 Other pancytopenia; D75.81 Myelofibrosis; J45.901 Unspecified asthma with (acute) exacerbation; R09.02 Hypoxemia; J10.1 Influenza due to other identified influenza virus with other respiratory manifestations; Z79.51 Long term (current) use of inhaled steroids; Z79.899 Other long term (current) drug therapy; Z86.711 Personal history of pulmonary embolism
CPT/HCPCS: 0241U; 36415; 71045; 80048; 80053; 80076; 83605; 84702; 85025; 87040; 94640; 99285; J0456; J0696; J1100; J1885; J2405; J3475; J7120; J8540

== ENCOUNTER → 2024-12-04 22:35 | Outpatient (BNV) | payer OTHER, SELFPAY | PROVIDERS: Visit Provider Radiology Diagnostic Radiology | DX: R05.9 Cough, unspecified (principal) | CPT/HCPCS: 71045 ==

== ENCOUNTER → 2024-12-05 01:17 | Outpatient (BNV) | payer OTHER, SELFPAY | PROVIDERS: Emergency Provider Emergency Medicine Emergency Medical Services; Visit Provider Student in an Organized Health Care Education/Training Program | DX: R09.02 Hypoxemia (principal); J10.1 Influenza due to other identified influenza virus with other respiratory manifestations; U07.1 COVID-19 | CPT/HCPCS: 99222; 99499 ==

== ENCOUNTER → 2024-12-05 06:21 | Outpatient (BNV) | payer OTHER, SELFPAY | PROVIDERS: Admitting Provider Student in an Organized Health Care Education/Training Program; Emergency Provider Emergency Medicine Emergency Medical Services; Visit Provider Internal Medicine | DX: D61.818 Other pancytopenia (principal); D75.81 Myelofibrosis; R16.1 Splenomegaly, not elsewhere classified | CPT/HCPCS: 99222 ==

== ENCOUNTER → 2024-12-14 11:15 | Outpatient (BNV) | payer OTHER, SELFPAY | PROVIDERS: Visit Provider Internal Medicine | DX: D61.818 Other pancytopenia (principal); R16.1 Splenomegaly, not elsewhere classified | CPT/HCPCS: 99214; G2211 ==

== ENCOUNTER 2025-01-08 12:08 | Day surgery (SDC) | payer OTHER, SELFPAY ==
--- NOTE | 2025-01-07 10:03 | HO.ANESPROP2 ---
Documented by User: Rekha Escalante NP 01/07/25 10:03 HPI - Anesthesia Eval Consult details Narrative: 24yo F for Fine Needle Biopsy CT Guided Bone Marrow PMFSH Active Problems Active Problems: All Active Problems Pancytopenia (Chronic) Influenza A (Acute) COVID (Acute) Past Medical History Medical History Pyothorax Recurrent right pleural effusion Asthma Hypogammaglobulinemia Pneumonia History of pulmonary embolism Thrombocytopenia Myelofibrosis Asthma Family History Family History Maternal Grandmother Breast CA Surgical History Surgical History History of surgery Previous section Social History Social History Household Members: Family and Children Housing: House Do you presently have visiting nurse or other home services: No Alcohol intake: former Patient Tobacco Use Status: Never used Tobacco Use of substances other than those prescribed or required for medical reasons: No Advance Directives: No Advance Directives Information Provided: Yes service: No Current occupational status: unemployed Gender identity: Female Meds Allergies Allergy/AdvReac Type Severity Reaction Status Date / Time No Known Allergies Allergy Verified 12/04/24 22:23 Home Medications ?Medication ?Instructions ?Recorded ?Confirmed ?Last Taken ?Type acetaminophen 325 mg tablet 650 mg PO Q6H PRN Pain/Headache 12/05/24 12/14/24 12/03/24 History albuterol sulfate 2.5 mg/3 mL 2.5 mg Q6H PRN wheezing 12/05/24 12/14/24 Unknown History (0.083 %) solution for nebulization albuterol sulfate 90 mcg/actuation 2 puff inhalation Q6H PRN wheezing 12/05/24 12/14/24 Unknown History aerosol inhaler fluticasone furoate 200 1 ea inhalation DAILY 12/05/24 12/14/24 01/08/25 History mcg-vilanterol 25 mcg/dose inhalation powder (Breo Ellipta) Assessment and Plan Assessment Anesthesia Assessment: Chart Reviewed Documented by User: Dee Jacobo MD 01/08/25 14:16 [facility] Past Medical History Medical History Pyothorax Recurrent right pleural effusion Asthma Hypogammaglobulinemia Pneumonia History of pulmonary embolism Thrombocytopenia Myelofibrosis Asthma Family History Family History Maternal Grandmother Breast CA Family history of problems with anesthesia: No Surgical History Surgical History History of surgery Previous section History of Problems with Anesthesia: No Social History Social History Household Members: Family and Children Housing: House Do you presently have visiting nurse or other home services: No Alcohol intake: former Patient Tobacco Use Status: Never used Tobacco Use of substances other than those prescribed or required for medical reasons: No Advance Directives: No Advance Directives Information Provided: Yes service: No Current occupational status: unemployed Gender identity: Female Meds Allergies Allergy/AdvReac Type Severity Reaction Status Date / Time No Known Allergies Allergy Verified 12/04/24 22:23 Home Medications ?Medication ?Instructions ?Recorded ?Confirmed ?Last Taken ?Type acetaminophen 325 mg tablet 650 mg PO Q6H PRN Pain/Headache 12/05/24 12/14/24 12/03/24 History albuterol sulfate 2.5 mg/3 mL 2.5 mg Q6H PRN wheezing 12/05/24 12/14/24 Unknown History (0.083 %) solution for nebulization albuterol sulfate 90 mcg/actuation 2 puff inhalation Q6H PRN wheezing 12/05/24 12/14/24 Unknown History aerosol inhaler fluticasone furoate 200 1 ea inhalation DAILY 12/05/24 12/14/24 01/08/25 History mcg-vilanterol 25 mcg/dose inhalation powder (Breo Ellipta) Exam Airway Mallampati Class: II TM Dist: >3cm Neck ROM: Full Heart: rrr Lungs: cta Assessment and Plan Assessment Anesthesia Assessment: Anesthesia Plan Discussed Final Anesthetic Review Family History of Problems with Anesthesia: No History of Problems with Anesthesia: No NPO: Yes ASA Class: III Final Preanesthetic Review: No Changes in Pt Med Stat, Meds/Allgs Chart Reviewed, Consent Obtained/Reviewed and Anes Risks/Benef Reviewed Patient Risk: Intermediate Procedure Risk: Low Anesthetic Plan Anesthetic Plan: MAC: Disposition: Standard PACU
--- NOTE | ~2025-01-08 | CT_ITS ---
CT-GUIDED BONE MARROW BIOPSY PROCEDURES: 1. Limited preprocedure CT of the pelvis. Permanent images saved in PACS. 2. 11 g bone marrow core biopsy of the left posterior iliac spine 3. 11 g bone marrow aspirate of the left posterior iliac spine MEDICATIONS: -Procedure performed under anesthesia. -For additional details, please see anesthesia flowsheet. COMPLICATIONS: None ESTIMATED BLOOD LOSS: < 5 ml CONTRAST: None SPECIMENS: 11 g core placed in formalin. Bone marrow aspirate placed in EDTA and sodium heparin tubes MODERATE SEDATION TIME: 20 min PROCEDURE NOTE: The procedure, risks, benefits, and alternatives were carefully explained to the patient with the aid of an security intern, and written informed consent was obtained. The patient was placed prone on the CT table. A timeout was performed. A limited CT of the pelvis was performed to localize the patient's left posterior iliac spine and to choose appropriate needle entry and trajectory. The patient was prepped and draped in usual sterile fashion. The skin, subcutaneous tissues, and periosteum were anesthetized with lidocaine. Under CT guidance, an 11-gauge bone marrow biopsy needle was advanced into the posterior iliac spine, with the tip positioned slightly cephalad. An 11-gauge core biopsy of the bone marrow was performed and was placed in formalin. Next, the 11-gauge bone marrow biopsy needle was then advanced into the posterior iliac spine, under CT guidance, with the tip positioned slightly caudal. A bone marrow aspirate was performed. The specimen was placed in the provided EDTA and sodium heparin tubes. The needle was removed. A dry dressing was applied and secured with Tegaderm. There were no immediate complications. The patient was stable after the procedure and was transferred to the post anesthesia care unit. The procedure was done under anesthesia. Please refer to the anesthesia flow sheet for details of sedation. CT/CT biopsy asp core bone marrow IMPRESSION: CT-guided bone marrow biopsy and aspirate Electronically signed by: Dannie Romano MD 01/08/2025 04:06 PM EDT
[2025-01-08 12:43] VITALS: BMI 22.4
[2025-01-08 12:53] LABS: UPreg QC Valid YES; Urine Pregnancy NEGATIVE (NEGATIVE)
[2025-01-08 12:57] VITALS: BP 118/55; PULSE 79; RESP 16; TEMP 36.5; O2SAT 94
[2025-01-08] MEDS: Lactated Ringers 1,000 ML 100 ML IVCONT (13:13)
[2025-01-08 15:40] VITALS: BP 116/60; PULSE 81; RESP 17; TEMP 37; O2SAT 95
[2025-01-08] MEDS: Lidocaine HCl 1 % MPF 30 ML VIAL 10 ML SUBCUT (15:43)
[2025-01-08 15:55] VITALS: BP 106/58; PULSE 81; RESP 16; O2SAT 97
[2025-01-08 16:10] VITALS: BP 105/58; PULSE 73; RESP 16; O2SAT 97
[2025-01-08 16:25] VITALS: BP 104/60; PULSE 71; RESP 16; TEMP 36.5; O2SAT 98
[2025-01-09 06:40] LABS: Bone Marrow SEE SEPARATE REPORT
== END 2025-01-08 16:42 | disposition home or self-care (01) ==
PROVIDERS: Nurse Practitioner; Pathology Anatomic Pathology & Clinical Pathology; Radiology Diagnostic Radiology; Visit Provider Internal Medicine
DX: D61.818 Other pancytopenia (principal); D75.81 Myelofibrosis; R53.83 Other fatigue; J45.909 Unspecified asthma, uncomplicated; Z86.711 Personal history of pulmonary embolism; D80.1 Nonfamilial hypogammaglobulinemia; Z79.51 Long term (current) use of inhaled steroids; Z79.899 Other long term (current) drug therapy; Z56.0 Unemployment, unspecified
CPT/HCPCS: 36415; 38222; 81025; 88184; 88185; 88237; 88264; 88305; 88311; 88313; J2003; J2250; J2704; J3010

== ENCOUNTER → 2025-01-08 14:36 | Outpatient (BNV) | payer OTHER, SELFPAY | PROVIDERS: Visit Provider Radiology Diagnostic Radiology | DX: D61.818 Other pancytopenia (principal) | CPT/HCPCS: 38222; 77012 ==

== ENCOUNTER 2025-02-17 20:47 | Emergency (ER) | payer OTHER, SELFPAY ==
--- NOTE | ~2025-02-17 | XR_ITS ---
CLINICAL HISTORY: pain 2 view chest x-ray Comparison: CR - XR CHEST 1V - 12/04/24 22:43 EST Findings: The lungs are clear. Heart size is normal. No acute fracture. IMPRESSION: 1. No acute findings. This document has been electronically signed by: German Moreno MD on 02/17/2025 21:54:45
[2025-02-17 20:52] VITALS: BP 129/52; PULSE 95; RESP 16; TEMP 37.4; O2SAT 93; BMI 22.9
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
[2025-02-17 22:36] VITALS: BP 113/65; RESP 16; O2SAT 94
[2025-02-18 00:18] VITALS: BP 105/61; PULSE 89; RESP 16; TEMP 37.3; O2SAT 94
== END 2025-02-18 00:23 | disposition home or self-care (01) ==
PROVIDERS: Emergency Provider Emergency Medicine Emergency Medical Services
DX: R07.89 Other chest pain (principal); Z79.899 Other long term (current) drug therapy
CPT/HCPCS: 71046; 99283; 99284

== ENCOUNTER → 2025-02-17 20:54 | Outpatient (BNV) | payer OTHER, SELFPAY | PROVIDERS: Visit Provider Radiology Diagnostic Radiology | DX: R07.9 Chest pain, unspecified (principal) | CPT/HCPCS: 71046 ==

== ENCOUNTER 2025-02-22 20:07 | Emergency (ER) | payer OTHER, SELFPAY ==
--- NOTE | ~2025-02-22 | CT_ITS ---
CLINICAL HISTORY: right chest pain CT chest without contrast Comparison: CT/SR - CT ANGIO CHEST PE PROTOCOL - 07/21/24 19:08 EDT Findings: Heart size is normal. There is no pericardial effusion. Thoracic aorta is normal in diameter. No enlarged lymph nodes are seen. There are multiple small bilateral pulmonary nodules. Largest nodule is in the superior segment of the left lower lobe measuring 8 mm. There is mild bilateral mosaic attenuation. There is bilateral bronchial wall thickening. There is stable minimal bronchiectasis in the lower lobes and inferior lingula. There is mucous plugging within segmental and subsegmental bronchi in the lower lungs. There is mild atelectasis in the inferior lingula and right middle lobe. There is no fracture or suspicious lytic or sclerotic lesion. Limited images of the upper abdomen demonstrate partially visualized splenomegaly. IMPRESSION: 1. Multiple small bilateral pulmonary nodules favored to be infectious/inflammatory. Follow-up is recommended to confirm resolution. 2. Bilateral bronchial wall thickening consistent with bronchitis. Stable minimal bronchiectasis in the lower lobes and inferior lingula. 3. Mild bilateral mosaic attenuation most likely due to air trapping. 4. Partially visualized splenomegaly. This document has been electronically signed by: Daniel Yarbrough MD on 02/23/2025 02:50:53
[2025-02-22 20:21] VITALS: BP 106/58; PULSE 97; RESP 16; TEMP 37; O2SAT 93; BMI 22.7
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
--- NOTE | 2025-02-22 20:25 | ECG_ITS ---
Test Reason : CP Blood Pressure : */* mmHG Vent. Rate : 96 BPM Atrial Rate : 96 BPM P-R Int : 124 ms QRS Dur : 70 ms QT Int : 350 ms P-R-T Axes : 67 52 65 degrees QTcB Int : 442 ms Normal sinus rhythm Normal ECG When compared with ECG of 21-Jul-2024 18:39, No significant change was found Referred By: Brit Tellez Electronically Signed By: CARMEN PADRON MD
[2025-02-22 20:46] LABS: MANUAL DIFF FLAG NO
[2025-02-22 20:50] LABS: Basophils Percent Auto 0.2 % (0-2); Eosinophils Absolute Auto 0.3 X10*3/uL (0.0-0.4); Eosinophils Percent Auto 7.2 % (0-4); Hemoglobin 12.5 g/dl (12.0-16.0); Imm Gran Abs Auto 0.01 X10*3/uL (0.00-0.03); Imm Gran Pct Auto 0.2 % (0.0-0.4); Lymphocytes Absolute Auto 1.6 X10*3/uL (1.2-4.9); Lymphocytes Percent Auto 34.9 % (20-40); Mean Corpuscular HGB Conc 32.1 g/dl (31.0-35.0); Mean Corpuscular Volume 81.1 fL (80.0-98.0); Mean Platelet Volume 10.6 fL (9.4-12.3); Monocytes Absolute Auto 0.4 X10*3/uL (0.1-1.2); Monocytes Percent Auto 9.2 % (2-11); Neutrophils Absolute Auto 2.2 x10*3/uL (2.0-8.3); Neutrophils Percent Auto 48.3 % (45-73); Platelet Count 62 X10*3/uL (160-400); Red Blood Count 4.81 X10*6/uL (4.20-5.50); Red Cell Distribution Width 14.7 % (11.0-16.0); White Blood Count 4.6 X10*3/uL (4.8-10.8)
[2025-02-22 20:55] LABS: Prothrombin Time 11.6 SEC (10.9-12.4)
[2025-02-22 21:03] LABS: Alanine Aminotransferase 36 U/L (0-31); Albumin Level 4.1 g/dL (3.5-5.0); Alkaline Phosphatase 102 U/L (39-117); Anion Gap 13 (12-20); Aspartate Amino Transferase 31 U/L (5-31); Bilirubin Direct 0.1 mg/dL (0.0-0.5); Bilirubin Total 0.5 mg/dL (0.0-1.0); Blood Urea Nitrogen 12 mg/dL (9-16); Calcium 9.2 mg/dL (8.4-10.2); Carbon Dioxide 24 mmol/L (22-29); Chloride 109 mmol/L (96-108); Creatinine Clr Calc Pharmacy 100.6; Estimated Glomerular Filt Rate > 60; Glucose Random 101 mg/dL (60-115); Magnesium 1.8 mg/dL (1.6-2.6); Potassium 3.8 mmol/L (3.3-5.1); Sodium 142 mmol/L (135-145); Total Protein 6.6 g/dL (6.5-8.0)
[2025-02-22 21:10] LABS: Troponin-I High Sensitivity < 2.7 ng/L (<3.5-17.0)
[2025-02-22 21:24] LABS: Influenza A PCR NEGATIVE (Negative); Influenza B PCR NEGATIVE (Negative); Resp Syncy Virus RNA Qual PCR NEGATIVE (Negative); SARS COV2 PCR INHOUSE NEGATIVE (Negative)
[2025-02-23 00:21] VITALS: BP 93/50; PULSE 85; RESP 24; TEMP 36.7; O2SAT 95
[2025-02-23 01:27] LABS: HCG Quantitative < 2 mIU/mL
[2025-02-23 02:34] VITALS: BP 109/75; PULSE 112; RESP 20; TEMP 37.1; O2SAT 92
[2025-02-23 03:28] VITALS: BP 109/75; PULSE 112; RESP 20; TEMP 37.1; O2SAT 92
== END 2025-02-23 03:38 | disposition home or self-care (01) ==
PROVIDERS: Physician Assistant; Emergency Provider Internal Medicine
DX: R07.89 Other chest pain (principal); J40 Bronchitis, not specified as acute or chronic; Z03.818 Encounter for observation for suspected exposure to other biological agents ruled out; Z79.899 Other long term (current) drug therapy
CPT/HCPCS: 0241U; 36415; 71250; 80048; 80076; 83735; 84484; 84702; 85025; 85610; 93005; 99284; 99285

== ENCOUNTER → 2025-02-22 20:25 | Outpatient (BNV) | payer OTHER, SELFPAY | PROVIDERS: Emergency Provider Internal Medicine; Visit Provider Internal Medicine Cardiovascular Disease | DX: R07.9 Chest pain, unspecified (principal) | CPT/HCPCS: 93010 ==

== ENCOUNTER → 2025-02-23 01:05 | Outpatient (BNV) | payer OTHER, SELFPAY | PROVIDERS: Emergency Provider Internal Medicine; Visit Provider Radiology Diagnostic Radiology | DX: J98.09 Other diseases of bronchus, not elsewhere classified (principal); R91.8 Other nonspecific abnormal finding of lung field; R16.1 Splenomegaly, not elsewhere classified | CPT/HCPCS: 71250 ==

== ENCOUNTER 2025-06-11 11:40 | Inpatient (IN) | payer OTHER, SELFPAY ==
[2025-06-11] VITALS (8 sets, daily range): BP systolic 103–131; BP diastolic 61–68; PULSE 83–120; RESP 20–22; TEMP 36.8–36.9; O2SAT 88–96; BMI 24.7
--- NOTE | ~2025-06-11 | XR_ITS ---
EXAMINATION: XR CHEST CLINICAL INFORMATION: cough COMPARISON: 02/17/2025. TECHNIQUE: 2 views of the chest were obtained. FINDINGS: The cardiac, hilar, and mediastinal contours are normal. The lungs demonstrate patchy linear opacities in the right middle lobe and lingula, likely reflecting small airways inflammation. There is no segmental consolidation. There is no pneumothorax or pleural effusion. There is no focal soft tissue abnormality. There is a healed right rib fracture noted. XR/XR chest 2V IMPRESSION: Findings suggesting diffuse inflammatory airways disease most notable in the lingula and right middle lobe. Electronically signed by: Dannie Romano MD 06/11/2025 12:04 PM EDT
--- NOTE | ~2025-06-11 | CT_ITS ---
EXAMINATION: CT CHEST WITHOUT CONTRAST CLINICAL INFORMATION: -cough, 'black sputum', prior CT -Prior CT 02/2025 shows infectious/inflam bilateral pulmonary COMPARISON: Chest radiographs on June 11, 2025. Chest CT on February 23, 2025 TECHNIQUE: Multidetector volumetric CT imaging of the chest was done. Axial MIP volume rendering provided. Sagittal and coronal reformatted images were obtained. This CT examination was performed using dose optimization techniques as appropriate, variously including the following: *Automated exposure control *Adjustment of mA and/or kV according to patient size (this includes techniques or standardized protocols for targeted exams where dose is matched to indication/reason for exam; i.e. extremities or head) *Use of iterative reconstruction technique FINDINGS: Mild motion partially degrades evaluation. 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 LUNGS: Central airways appears patent. Moderate degree of diffuse bronchial wall thickening, with mucus plugging, similar to prior study. Mild bilateral mosaic attenuation, more pronounced in the right upper lobe, is better seen on the current study due to differences in respiratory phase. Band of atelectasis in the medial aspect of the lingula. Waxing and waning of bilateral pulmonary nodules, some of them with irregular shape. The largest nodule measuring about 1.4 cm in the right upper lobe (4:26) is new from February 2025. MEDIASTINUM: No thyroid nodules identified. Soft tissue density in the anterior mediastinum likely represents residual thymic tissue. Heart is normal in size. No pericardial effusion. No coronary artery calcifications. PLEURA: No pneumothorax or pleural effusion. AXILLA: No lymphadenopathy. UPPER ABDOMEN: Partially included splenomegaly. OSSEOUS STRUCTURES: Healing right posterior seventh rib fracture. No acute abnormality. CT/CT chest wo IV con IMPRESSION: 1. Waxing and waning pattern of bilateral pulmonary nodules. The largest right upper lobe nodule measuring 1.4 cm is new from prior study. Findings are most likely infectious/inflammatory. 2. Similar diffuse bilateral bronchial wall thickening consistent with bronchitis. Electronically signed by: Jerel Ma MD 06/12/2025 09:03 AM EDT
--- NOTE | 2025-06-11 11:49 | ED_ITS ---
HPI - General Adult General Chief complaint: Dyspnea Stated complaint: cough, difficulty breathing Time Seen by Provider: 06/11/25 12:01 Source: patient Mode of arrival: ambulatory Limitations: language barrier History of Present Illness ED Provider: brendan cordero HPI narrative: 24-year-old female here today history of asthma has an asthma exacerbation also she has had a cold and a cough for the past 1-1/2 weeks. Using her inhaler at home without any relief. Patient states that she has a nebulizer medicine but she stay in [address] and the medication is somewhere else. She denies any chest pain fever or chills. Patient states that in the past approximately a year ago she had an infection in her lung and she had to have her lung drained and she had been admitted to the hospital. Since then she has also had another infection in the same line had to take antibiotics for a period states it was her right lung. Denies any abdominal pain nauseousness or vomiting. Related Data Home Medications ?Medication ?Instructions ?Recorded ?Confirmed acetaminophen 325 mg tablet 650 mg PO Q6H PRN Pain/Hea dache 12/05/24 01/15/25 albuterol sulfate 2.5 mg/3 mL 2.5 mg Q6H PRN wheezing 12/05/24 01/15/25 (0.083 %) solution for nebulization albuterol sulfate 90 mcg/actuation 2 puff inhalation Q 6H PRN wheezing 12/05/24 01/15/25 aerosol inhaler fluticasone furoate 200 1 ea inhalation DAILY 01/15/25 mcg-vilanterol 25 mcg/dose inhalation powder (Breo Ellipta) Previous Rx's ?Medication ?Instructions ?Recorded azithromycin 250 mg tablet See Rx Instructions PO .COM PLEX #6 02/23/25 tabs cyclobenzaprine 10 mg tablet 10 mg PO TID PRN muscle s pasm #20 02/23/25 tabs Allergies Allergy/AdvReac Type Severity Reaction Status Date / Time No Known Allergies Allergy Verified 06/11/25 11:46 Review of Systems 2 Review of Systems: Constitutional : No Fever, No Chills ENT/Mouth : No sore throat, No Rhinorrhea Eyes: No Eye Pain, No Swelling, No Redness positive nasal congestion Cardiovascular : No Chest Pain, positive SOB Respiratory : Positive Cough, No Sputum Gastrointestinal : No Nausea, No Vomiting, No Diarrhea, No abdominal Pain Genitourinary : No Dysuria, No Hematuria Musculoskeletal : No joint pain, No Myalgias, No Joint Swelling Skin : No Skin Lesions, positive skin rash Neuro : No Weakness, No Numbness, No Headache All other systems reviewed and are negative [facility] Past Medical History Medical History Pyothorax Recurrent right pleural effusion Asthma Hypogammaglobulinemia Pneumonia History of pulmonary embolism Thrombocytopenia Myelofibrosis Asthma Surgical History History of surgery Previous section Family History Family History Maternal Grandmother Breast CA Social History Social History Household Members: Family and Children Housing: House Do you presently have visiting nurse or other home services: No Alcohol intake: former Patient Tobacco Use Status: Never used Tobacco Smoked in Last 30 Days: No Advance Directives: No Advance Directives Information Provided: Yes service: No Current occupational status: unemployed Gender identity: Female Physical Exam ED Vital Signs: Vital Signs - 24 hr 06/11/25 11:43 06/11/25 12:28 06/11/25 12:31 Temperature 98.4 F Pulse Rate 120 H 97 Respiratory Rate 22 H 22 H Blood Pressure 131/68 Pulse Oximetry 91 L 94 Oxygen Delivery Method Room Air Nasal Cannula Oxygen Flow Rate 2 06/11/25 13:38 Temperature Pulse Rate Respiratory Rate Blood Pressure Pulse Oximetry 88 L Oxygen Delivery Method Oxygen Flow Rate BMI result Body Mass Index 24.7 Appearance: Alert. Oriented X3. No acute distress. Eyes: Pupils equal, round and reactive to light. ENT: Pharynx normal. Neck: Normal inspection. Neck supple. CVS: Normal heart rate and rhythm. Pulses normal. Respiratory: Expiratory wheezing throughout. No accessory muscle use noted no stridor no trismus Abdomen: Soft and nontender. non distender normal BS Skin: Skin warm and dry. Normal skin color. Extremities: No lower extremity edema. No calf ttp FROM of extemities Neuro: Oriented X 3. Course Course Course Narrative: This is a Rapid Medical Examination (RME) performed by Malgorzata Miguel PA-C in triage. Full HPI, ROS, assessment and treatment plan per primary provider in the Main ED. Hx: 24 yo F hx asthma here w/ concerns of asthma exacerbation and cough x2 weeks. used her albuterol pump this am without improvement. reports recent infection in lungs requiring abx. PE/vitals: tachycardic to 120, satting 90% on RA, airway patent, speaking in complete sentences, no tripoding, lungs clear Plan: labs, ekg, cxr, viral swabs, cxr Medications Administered Discontinued Medications Generic Name Dose Route Start Last Admin Trade Name Freq PRN Reason Stop Dose Admin Albuterol Sulfate 5 mg/ 0 mg 06/11/25 12:25 06/11/25 12:28 Albuterol/Ipratropium 3 ml INHALE 06/11/25 12:26 1 each ONCE ONE Administration Magnesium Sulfate 2 gm in 50 mls @ 150 mls/hr 06/11/25 12:12 06/11/25 13:13 Magnesium Sulfate/H2o IV 06/11/25 12:31 Infused ONCE ONE Infusion Methylprednisolone Sodium Succinate 60 mg 06/11/25 12:11 06/11/25 12:21 Methylprednisolone Sod Succ 125 Mg/2 Ml Vial IVPUSH 06/11/25 12:12 60 mg ONCE ONE Administration Medical Decision Making Medical Decision Making MDM Narrative: This is a 24-year-old female who has a history of asthma who comes in for an asthma exacerbation satting at 88% on arrival and then 2 L nasal cannula satting on 90-93. Patient was talking upon arrival. Patient received a nebulizer treatment along with 60 mg of prednisone 2 mg of Mag. Chest x-ray reveals no acute infiltrate. Inflammatory process noted. Patient up walking is hypoxic at 88 and tachycardic. Discussed with my supervising physician. Care transferred for further nebulizer treatments and monitoring. Differential Diagnosis Differential Diagnoses: The differential diagnosis associated with the presentation includes (Asthma exacerbation Hypoxia Pneumonia viral syndrome ) Lab Data 06/11/25 12:18 06/11/25 12:18 Labs: Lab Results 06/11/25 06/11/25 Range/Units 12:18 12:20 WBC 8.3 (4.8-10.8) X10*3/uL RBC 5.39 (4.20-5.50) X10*6/uL Hgb 14.1 (12.0-16.0) g/dl Hct 43.3 (37.0-47.0) % MCV 80.3 (80.0-98.0) fL MCH 26.2 L (27.0-33.0) pg MCHC 32.6 (31.0-35.0) g/dl RDW 14.6 (11.0-16.0) % Plt Count 76 L (160-400) X10*3/uL MPV 11.4 (9.4-12.3) fL Immature Gran % (Auto) 0.2 (0.0-0.4) % Neut % (Auto) 58.1 (45-73) % Lymph % (Auto) 28.1 (20-40) % Eddy % (Auto) 6.2 (2-11) % Eos % (Auto) 7.2 H (0-4) % Baso % (Auto) 0.2 (0-2) % Lymph # (Auto) 2.3 (1.2-4.9) X10*3/uL Eddy # (Auto) 0.5 (0.1-1.2) X10*3/uL Eos # (Auto) 0.6 H (0.0-0.4) X10*3/uL Baso # (Auto) 0.0 (0.0-0.2) X10*3/uL Abs Immat Gran (auto) 0.02 (0.00-0.03) X10*3/uL Absolute Neuts (auto) 4.8 (2.0-8.3) x10*3/uL Absolute Nucleated RBC 0.000 (0.0-0.012) X10*3/uL Nucleated RBC % (auto) 0.0 (0.0-0.2) /100WBC Sodium 143 (135-145) mmol/L Potassium 3.6 (3.3-5.1) mmol/L Chloride 109 H (96-108) mmol/L Carbon Dioxide 26 (22-29) mmol/L Anion Gap 12 (12-20) BUN 15 (9-16) mg/dL Creatinine 0.68 (0.5-1.4) mg/dL Estim Creat Clear Calc 105.4 Estimated GFR > 60 Random Glucose 90 (60-115) mg/dL Calcium 9.5 (8.4-10.2) mg/dL Magnesium 1.8 (1.6-2.6) mg/dL Total Bilirubin 0.6 (0.0-1.0) mg/dL AST 42 H (5-31) U/L ALT 50 H (0-31) U/L Alkaline Phosphatase 98 (39-117) U/L Total Protein 7.4 (6.5-8.0) g/dL Albumin 4.6 (3.5-5.0) g/dL COVID-19 (SYL) Negative (Negative) COVID-19 Clin Com See Note Influenza Type A (CARLO) Negative (Negative) Influenza Type B (CARLO) Negative (Negative) Influenza A & B Note See Note Discharge Plan Discharge Clinical Impression: Asthma with exacerbation, Hypoxia Patient Disposition: Admitted As Inpatient Print Language: Luxembourgish
--- NOTE | 2025-06-11 11:49 | ECG_ITS ---
Test Reason : ASTHMA Blood Pressure : */* mmHG Vent. Rate : 101 BPM Atrial Rate : 101 BPM P-R Int : 128 ms QRS Dur : 72 ms QT Int : 340 ms P-R-T Axes : 74 69 69 degrees QTcB Int : 440 ms Sinus tachycardia Low voltage QRS Borderline ECG When compared with ECG of 22-Feb-2025 20:32, No significant change was found Referred By: Charley Miguel Electronically Signed By: Dean Ramey
[2025-06-11] MEDS: Magnesium Sulfate/H2O 2 GM/50 ML PIGGYBACK IV (12:22)
[2025-06-11 12:27] LABS: MANUAL DIFF FLAG NO
[2025-06-11] MEDS: Albuterol Sulfate 5 MG, Albuterol/Iprat 2.5/0.5MG 3 ML 3 ML INHALE (12:28)
[2025-06-11 12:30] LABS: NRBC Abs Auto 0.000 X10*3/uL (0.0-0.012); NRBC Pct Auto 0.0 /100WBC (0.0-0.2); PLT CLUMP 1; SCAN SMEAR FLAG 1
[2025-06-11 12:31] LABS: Hematocrit 43.3 % (37.0-47.0); Hemoglobin 14.1 g/dl (12.0-16.0); Imm Gran Abs Auto 0.02 X10*3/uL (0.00-0.03); Imm Gran Pct Auto 0.2 % (0.0-0.4); Lymphocytes Absolute Auto 2.3 X10*3/uL (1.2-4.9); Mean Corpuscular HGB Conc 32.6 g/dl (31.0-35.0); Mean Corpuscular Hemoglobin 26.2 pg (27.0-33.0); Mean Corpuscular Volume 80.3 fL (80.0-98.0); Red Blood Count 5.39 X10*6/uL (4.20-5.50)
[2025-06-11 12:38] LABS: Platelet Count 76 X10*3/uL (160-400); White Blood Count 8.3 X10*3/uL (4.8-10.8)
[2025-06-11 12:42] LABS: COVID-19 Test Negative (Negative); IDNOW Serial# 55D5AD1C
[2025-06-11 12:44] LABS: IDNOW Serial# 58CA691E; Influenza B2 Negative (Negative)
[2025-06-11 12:46] LABS: Alanine Aminotransferase 50 U/L (0-31); Albumin Level 4.6 g/dL (3.5-5.0); Alkaline Phosphatase 98 U/L (39-117); Anion Gap 12 (12-20); Aspartate Amino Transferase 42 U/L (5-31); Blood Urea Nitrogen 15 mg/dL (9-16); Calcium 9.5 mg/dL (8.4-10.2); Carbon Dioxide 26 mmol/L (22-29); Chloride 109 mmol/L (96-108); Creatinine Clr Calc Pharmacy 105.4; Estimated Glomerular Filt Rate > 60; Magnesium 1.8 mg/dL (1.6-2.6); Potassium 3.6 mmol/L (3.3-5.1); Sodium 143 mmol/L (135-145); Total Protein 7.4 g/dL (6.5-8.0)
--- OUTSIDE RECORDS SUMMARY | 2025-06-11 13:50 | XMS_ITS | Clinical Summary ---
Author Organization [facility] Address [address] [place] [id number] Phone Care Team Providers Care Hay Buckler Name Role Phone Self-Referred, Patient Unavailable Unavailab Maria Alejandra Sosa NP Primary Care Provider [phone] Payton Ingram MD Unavailable [phone] Social History Tobacco Use Types Packs/Day Years Used Date Smoking Tobacco: Never Assessed Education Answer Date Recorded Are you interested in more education? Not on tamar e 12/18/2024 Are you concerned about learning? Not on file 12/18/2024 No 12/18/2024 No 12/18/2024 Digital Access Answer Date Recorded No 12/18/2024 No 12/18/2024 Reliable internet access at home? Not on file 12/18/2024 Device with a working camera? Not on file Comments Unknown Sex and Gender Information Value Date Recorded Sex Assigned at Female 02/14/2025 2:34 PM EDT Legal Sex Female 3:26 PM EDT Gender Identity Female 02/14/2025 2:34 PM EDT Sexual Orientation Straight 02/14/2025 2: 34 PM EDT Plan of Treatment Health Maintenance Due Date Last Done Comments Adult Td,Tdap Booster 2000 DEPRESSION SCREENING 2012 SMOKING Hx and SMOKELESS TOB ACCO SCREENING 2013 HPV VACCINES (1 - 3-dose series) 2015 CHLAMYDIA SCREENING 2016 HEPATITIS C SCREENING 2018 HIV ONE-TIME SCREENING (18-6 5 YEARS) 2018 PAP SMEAR 2021 COVID-19 VACCINE ( - 2023-2 5 season) 2024 HEPATITIS A VACCINES Aged Out No long er eligible based on patient's age to complete this topic HIB VACCINES Aged Out No longer eligi ble based on patient's age to complete this topic MENINGOCOCCAL VACCINES (ACWY) Aged Out No longer eligible based on patient's age to complete this topic MENINGOCOCCAL VACCINES (B) Aged Out N o longer eligible based on patient's age to complete this topic PNEUMOCOCCAL VACCINES (0-49 years) Aged Out No longer eligible based on patient's age to complete this topic Medical Devices Not on file Insurance [employer] ACO [employer] ACO BE HE[employer]Y PARTNERSHIP ACO ACO ACO PARTNERSHIP ACO Care Teams Hay Buckler Relationship Specialty Start Date End Date Maria Alejandra Odom NP [address] [place] [id number] PCP - General Nurse Practitioner 03/29/25 Self-Referred, Patient Referring Physician 02/14/25 Payton Ingram MD [address] [place] [address] [email or web address] [facility] 03/29/25 Additional Source Comments The information contained in this document represents components of the legal health record. It is not the complete legal health record.[facility]
--- NOTE | 2025-06-11 14:12 | PC.NURSE ---
Per provider 2L O2 removed and pt O2 sat 90% on room air. Upon ambulation O2 sat decreased to 88%, pt brought back to room and placed back on 2L O2
--- NOTE | 2025-06-11 15:18 | P.HPHOSP_ITS ---
History of Present Illness Date of Service: 06/11/25 Attending physician on admission: Mary Jo Wilhelm Chief Complaint: Cough, fever, phlegm production 24-year-old female with a background history of PE 2020 & 2022 (unprovoked), myelofibrosis (2000) s/p transfusion support until 2018, pancytopenia/ thrombocytopenia, pneumonia c/b empyema, splenomegaly, presents to the hospital with complaints of 1 and half week of cough productive of black phlegm, and subjective fever. Complaints of initially dry cough, progressing to productive over the past 1-1/2 weeks. Productive cough described as black in color, thick and difficult to bring up. She endorses subjective fever, with rigors and sweating yesterday, however has not recurred since. Patient denies wheezing, dyspnea. She denies retrosternal chest pain, palpitations, nausea, vomiting, diarrhea. Denies new rashes. ED MANAGEMENT 88% ON ARRIVAL, PLACED ON 2 L NC IMPROVEMENT TO 90-93%. SHE WAS GIVEN PREDNISONE 60 MG, 2 MG MAGNESIUM, AND NEBULIZER TREATMENTS. Hypoxic 88% and tachycardic on mobilization. Chest x-ray revealing inflammatory airway disease, notably in the lingula and right middle lobe. ADDITIONAL Patient has a complicated background history including diagnosis of myelofibrosis at 1-year-old, requiring supportive transfusions until 2018, then she was lost to follow up. 2020 in 2022, the patient suffered with a pulmonary embolism, however there is no record of her being on anticoagulation. Recent CTA 07/2024 negative for PE, ultrasound bilateral lower extremities negative for DVT. She suffered with a prolonged hospitalization during July 2024 after a 2nd , c/b pneumonia with empyema - patient describes tube placement on her right side to allow drainage. As per hematology/oncology note; Bone marrow biopsy 01/2025 revealed normocellular, erythroid dominant marrow with left-shifted myeloid maturation, reticulin fibrosis, reduced iron stores, flow cytometry showing nonspecific T- cell dominant profile. No increase in CD34 positive cells, no evidence of B- cell lymphoproliferative disorder. Review of Systems 2 Review of Systems: Yes all other systems are reviewed and are negative [facility] Medical History (Updated 06/11/25 @ 15:39 by Mary Jo Wilhelm MD) Pyothorax Recurrent right pleural effusion Asthma Hypogammaglobulinemia Pneumonia History of pulmonary embolism Thrombocytopenia Myelofibrosis Asthma Family History Maternal Grandmother Breast CA Surgical History (Updated 01/15/25 @ 15:33 by Payton Ingram MD) History of surgery Previous section Social History Household Members: Family and Children Housing: House Do you presently have visiting nurse or other home services: No Alcohol intake: former Patient Tobacco Use Status: Never used Tobacco Smoked in Last 30 Days: No Advance Directives: No Advance Directives Information Provided: Yes service: No Current occupational status: unemployed Gender identity: Female Meds Allergies Allergy/AdvReac Type Severity Reaction Status Date / Time No Known Allergies Allergy Verified 06/11/25 11:46 Active Medications: Current Medications Acetaminophen (Acetaminophen 325 Mg Tablet) 650 mg PO Q6H PRN PRN Reason: Pain, Mild 1-3,fever,headache Calcium Carbonate (Calcium Carbonate 750 Mg Tab.Chew) 750 mg PO Q4H PRN PRN Reason: Heartburn Cephalexin HCl (Cephalexin 500 Mg Capsule) 500 mg PO BID JUSTIN Doxycycline Monohydrate (Doxycycline Monohydrate 100 Mg Capsule) 100 mg PO BID [facility] Enoxaparin Sodium (Enoxaparin Sodium 40 Mg/0.4 Ml Syringe) 40 mg SUBCUT Q24H JUSTIN Magnesium Hydroxide (Milk Of Magnesia 30 Ml Oral.Susp) 30 ml PO DAILY PRN PRN Reason: Constipation Melatonin (Melatonin 3 Mg Tablet) 6 mg PO BEDTIME PRN PRN Reason: Insomnia Prednisone (Prednisone 20 Mg Tablet) 40 mg PO DAILY JUSTIN Stop: 06/18/25 15:14 Sodium Chloride (0.9 % Sodium Chloride Flush 3 Ml Syringe) 3 ml IVFLUSH QSHIFT [facility] Home Medications ?Medication ?Instructions ?Recorded ?Confirmed ?Last Taken ?Type acetaminophen 325 mg tablet 650 mg PO Q6H PRN Pain/Hea dache 12/05/24 01/15/25 12/03/24 History albuterol sulfate 2.5 mg/3 mL 2.5 mg Q6H PRN wheezing 12/05/24 01/15/25 Unknown History (0.083 %) solution for nebulization albuterol sulfate 90 mcg/actuation 2 puff inhalation Q 6H PRN wheezing 12/05/24 01/15/25 Unknown History aerosol inhaler fluticasone furoate 200 1 ea inhalation DAILY 01/15/25 01/08/25 History mcg-vilanterol 25 mcg/dose inhalation powder (Breo Ellipta) Physical Exam 2 Vital Signs and Narrative: Vital Signs: Last Vital Signs Temp 98.5 F 06/11/25 15:17 Pulse 111 H 06/11/25 15:17 Resp 20 06/11/25 15:17 BP 122/64 06/11/25 15:17 Pulse Ox 94 06/11/25 15:17 O2 Del Method Nasal Cannula 06/11/25 15:17 O2 Flow Rate 2 06/11/25 15:17 BMI result Body Mass Index 24.7 General: A&O x3, oriented to time place person and situation, comfortable, no pain Cardiac: S1, S2 auscultated with no S3/4, no MRG. Well perfused. Respiratory: Decreased breath sounds throughout all lung zones, with mild crackles and crepitations auscultated in the right lower and mid zones. End expiratory wheezing auscultated throughout all lung zones. No respiratory distress, no tripoding, no peripheral or central cyanosis/ GI/ : No abdominal pain on palpation, no masses or distentions. MSK: Normal ambulation without pain at bony prominences or musculature Neurological: Normal neurological examination on overview, without obvious CN II-XII abnormalities. Results Labs 06/11/25 12:18 06/11/25 12:18 Labs: Laboratory Results - last 24 hr 06/11/25 06/11/25 12:18 12:20 MCV 80.3 MCH 26.2 L MCHC 32.6 RDW 14.6 Plt Count 76 L MPV 11.4 Immature Gran % (Auto) 0.2 Neut % (Auto) 58.1 Lymph % (Auto) 28.1 Marshall % (Auto) 6.2 Eos % (Auto) 7.2 H Baso % (Auto) 0.2 Lymph # (Auto) 2.3 Marshall # (Auto) 0.5 Eos # (Auto) 0.6 H Baso # (Auto) 0.0 Abs Immat Gran (auto) 0.02 Absolute Neuts (auto) 4.8 Absolute Nucleated RBC 0.000 Nucleated RBC % (auto) 0.0 Anion Gap 12 Estim Creat Clear Calc 105.4 Estimated GFR > 60 Random Glucose 90 Calcium 9.5 Magnesium 1.8 Total Bilirubin 0.6 AST 42 H ALT 50 H Alkaline Phosphatase 98 Total Protein 7.4 Albumin 4.6 COVID-19 (SYL) Negative COVID-19 Clin Com See Note Influenza Type A (CARLO) Negative Influenza Type B (CARLO) Negative Influenza A & B Note See Note Imaging Radiologist's Impressions: Impressions Chest X-Ray 06/11/25 11:00 IMPRESSION: Findings suggesting diffuse inflammatory airways disease most notable in the lingula and right middle lobe. Electronically signed by: Dannie Romano MD 06/11/2025 12:04 PM EDT RP Assessment and Plan (1) Asthma with exacerbation: Qualifiers: Asthma severity: moderate Asthma persistence: persistent Qualified Code(s): J45.41 - Moderate persistent asthma with (acute) exacerbation Status: Acute (2) Acute hypoxemic respiratory failure: Status: Acute (3) Pancytopenia: Status: Chronic (4) Myelofibrosis: Status: Acute (5) Eosinophilia: Qualifiers: Eosinophilia type: unspecified eosinophilia Qualified Code(s): D72.10 - Eosinophilia, unspecified Status: Acute Plan 24-year-old female with a background history of PE 2020 & 2022 (unprovoked), myelofibrosis (2000) s/p transfusion support until 2018, pancytopenia/ thrombocytopenia, pneumonia c/b empyema, splenomegaly, presents to the hospital with complaints of 1 and half week of cough productive of black phlegm, and subjective fever, admitted with acute hypoxic respiratory failure 2/2 pneumonia. Acute hypoxic respiratory failure Community-acquired pneumonia History of pneumonia c/b empyema PLAN - doxycycline 100 mg b.i.d. p.o. - Keflex 500 mg b.i.d. p.o. - prednisone 40 mg OD p.o. - CT chest without IV contrast (further clarification of pulmonary nodules identified on CT 02/2025) Myelofibrosis Pancytopenia Thrombocytopenia Eosinophilia Splenomegaly Eosinophilia could be 2/2 allergic asthma versus other infective process - consult hematology/oncology Pulmonary embolism 2020 and 2022 Not on anticoagulation at this time CTA 07/2024 negative for PE [employer]ALITY [employer] - VTE: Enoxaparin 40 mg - CODE STATUS: Full code - DIET: Regular Quality Stroke Does the patient have a stroke diagnosis?: No VTE Prior VTE?: No VTE Risk Level:: Medical - moderate - high VTE Device Contraindication: Treatment Not Indicated VTE Drug Contraindication: N/A - Med Ordered
[2025-06-11 15:31] LABS: UPreg QC Valid YES
[2025-06-11] MEDS: Albuterol/Iprat 2.5/0.5MG 3 ML AMPUL.NEB INHALE (15:38)
--- NOTE | 2025-06-11 15:51 | PHA.MEDREC ---
Addendum entered by Fran Sawant, PharmD 06/11/25 17:50: MED REC CHECKED BY [facility] Original Note: Pharmacy Consult ? Medication Reconciliation Pharmacy has completed the medication reconciliation. Spoke to patient through airport ramp supervisor service to confirm med list. Patient states she is only taking Ventolin HFA inhaler.
[2025-06-11] MEDS: 0.9 % Sodium Chloride Flush 3 ML SYRINGE IVFLUSH (16:19)
[2025-06-12 03:32] VITALS: BP 108/59; PULSE 83; RESP 25; TEMP 36.6; O2SAT 97
[2025-06-12 05:09] LABS: Lymphocytes Absolute Auto 1.6 X10*3/uL (1.2-4.9); NRBC Abs Auto 0.000 X10*3/uL (0.0-0.012); NRBC Pct Auto 0.0 /100WBC (0.0-0.2); PLT CLUMP 1; SCAN SMEAR FLAG 1
[2025-06-12 05:11] LABS: Hematocrit 39.7 % (37.0-47.0); Hemoglobin 13.2 g/dl (12.0-16.0); Imm Gran Abs Auto 0.05 X10*3/uL (0.00-0.03); Imm Gran Pct Auto 0.8 % (0.0-0.4); Mean Corpuscular HGB Conc 33.2 g/dl (31.0-35.0); Mean Corpuscular Hemoglobin 26.8 pg (27.0-33.0); Mean Corpuscular Volume 80.5 fL (80.0-98.0); Red Blood Count 4.93 X10*6/uL (4.20-5.50)
[2025-06-12 05:15] LABS: White Blood Count 6.5 X10*3/uL (4.8-10.8)
[2025-06-12 05:16] LABS: MANUAL DIFF FLAG NO; Platelet Count 73 X10*3/uL (160-400)
[2025-06-12 05:34] LABS: Alanine Aminotransferase 37 U/L (0-31); Albumin Level 4.4 g/dL (3.5-5.0); Alkaline Phosphatase 102 U/L (39-117); Anion Gap 13 (12-20); Aspartate Amino Transferase 27 U/L (5-31); Blood Urea Nitrogen 13 mg/dL (9-16); Calcium 9.2 mg/dL (8.4-10.2); Carbon Dioxide 25 mmol/L (22-29); Chloride 109 mmol/L (96-108); Creatinine Clr Calc Pharmacy 125.7; Estimated Glomerular Filt Rate > 60; Potassium 4.0 mmol/L (3.3-5.1); Sodium 143 mmol/L (135-145); Total Protein 7.0 g/dL (6.5-8.0)
[2025-06-12 06:22] VITALS: BP 101/61; PULSE 94; RESP 18; TEMP 36.8; O2SAT 98
--- NOTE | 2025-06-12 07:23 | PC.NURSE ---
This RN assumed care of patient @ 0700 Trinidadian speaking A&O x 3 Patient on O2 2L NC 95%, denies SOB/WOB No cough noted at this time
[2025-06-12] MEDS: 0.9 % Sodium Chloride Flush 3 ML SYRINGE IVFLUSH ×3 (08:37→21:45)
[2025-06-12 12:22] VITALS: BP 102/51; PULSE 73; RESP 20; TEMP 36.6; O2SAT 94
--- NOTE | 2025-06-12 13:17 | HO.PM.IMPN ---
Subjective Subjective Date of Service: 06/12/25 Interval History: Feels well today. Improved from yesterday. Reports that her breathing feels easier. She has had persistent cough, which has decreased in intensity, however no phlegm or sputum. Sputum cup in room and empty. Denies retrosternal chest pain, palpitations, fevers, chills, rigors Review of Systems Review of Systems: Yes all other systems are reviewed and are negative Physical Exam Exam: Exam: General: A&O x3, oriented to time place person and situation, comfortable, no pain Cardiac: S1, S2 auscultated with no S3/4, no MRG. Well perfused. Respiratory: Decreased breath sounds throughout all lung zones, with mild crackles and crepitations auscultated in the right lower and mid zones. End expiratory wheezing auscultated throughout all lung zones. No respiratory distress, no tripoding, no peripheral or central cyanosis. GI/ : No abdominal pain on palpation, no masses or distentions. MSK: Normal ambulation without pain at bony prominences or musculature Neurological: Normal neurological examination on overview, without obvious CN II-XII abnormalities. Vital Signs: Vital Signs: Last Vital Signs Temp 97.8 F 06/12/25 12:22 Pulse 73 06/12/25 12:22 Resp 20 06/12/25 12:22 BP 102/51 L 06/12/25 12:22 Pulse Ox 94 06/12/25 12:22 O2 Del Method Nasal Cannula 06/12/25 12:22 O2 Flow Rate 2 06/12/25 12:22 BMI result Body Mass Index 24.7 Objective Data Active Medications Acetaminophen (Acetaminophen 325 Mg Tablet) 650 mg PO Q6H PRN PRN Reason: Pain, Mild 1-3,fever,headache Calcium Carbonate (Calcium Carbonate 750 Mg Tab.Chew) 750 mg PO Q4H PRN PRN Reason: Heartburn Cephalexin HCl (Cephalexin 500 Mg Capsule) 500 mg PO BID [facility] Last Admin: 06/12/25 08:37 Dose: 500 mg Documented By: CHRISTIANA Doxycycline Monohydrate (Doxycycline Monohydrate 100 Mg Capsule) 100 mg PO BID [facility] Last Admin: 06/12/25 08:37 Dose: 100 mg Documented By: CHRISTIANA Enoxaparin Sodium (Enoxaparin Sodium 40 Mg/0.4 Ml Syringe) 40 mg SUBCUT Q24H [facility] Last Admin: 06/11/25 16:18 Dose: 40 mg Documented By: ETELVINA Magnesium Hydroxide (Milk Of Magnesia 30 Ml Oral.Susp) 30 ml PO DAILY PRN PRN Reason: Constipation Melatonin (Melatonin 3 Mg Tablet) 6 mg PO BEDTIME PRN PRN Reason: Insomnia Prednisone (Prednisone 20 Mg Tablet) 40 mg PO DAILY [facility] Stop: 06/18/25 15:14 Last Admin: 06/12/25 08:37 Dose: 40 mg Documented By: CHRISTIANA Sodium Chloride (0.9 % Sodium Chloride Flush 3 Ml Syringe) 3 ml IVFLUSH QSHIFT [facility] Last Admin: 06/12/25 08:37 Dose: 3 ml Documented By: CHRISTIANA Labs 06/12/25 04:55 06/12/25 04:55 Labs: Laboratory Results - last 24 hr 06/11/25 06/12/25 15:20 04:55 MCV 80.5 MCH 26.8 L MCHC 33.2 RDW 14.3 Plt Count 73 L MPV 10.5 Immature Gran % (Auto) 0.8 H Neut % (Auto) 69.2 Lymph % (Auto) 24.1 Beadle % (Auto) 5.4 Eos % (Auto) 0.3 Baso % (Auto) 0.2 Lymph # (Auto) 1.6 Beadle # (Auto) 0.4 Eos # (Auto) 0.0 Baso # (Auto) 0.0 Abs Immat Gran (auto) 0.05 H Absolute Neuts (auto) 4.5 Absolute Nucleated RBC 0.000 Nucleated RBC % (auto) 0.0 Anion Gap 13 Estim Creat Clear Calc 125.7 Estimated GFR > 60 Random Glucose 144 H Calcium 9.2 Total Bilirubin 0.7 AST 27 ALT 37 H Alkaline Phosphatase 102 Total Protein 7.0 Albumin 4.4 Urine Test NEGATIVE Assessment and Plan (1) Pancytopenia: Status: Chronic (2) Eosinophilia: Status: Acute (3) Myelofibrosis: Status: Acute (4) Asthma with exacerbation: Status: Acute (5) Acute hypoxemic respiratory failure: Status: Acute Plan 24-year-old female with a background history of PE 2020 & 2022 (unprovoked), myelofibrosis (2000) s/p transfusion support until 2018, pancytopenia/ thrombocytopenia, pneumonia c/b empyema, splenomegaly, presents to the hospital with complaints of 1 and half week of cough productive of black phlegm, and subjective fever, admitted with acute hypoxic respiratory failure 2/2 pneumonia. Acute hypoxic respiratory failure Community-acquired pneumonia History of pneumonia c/b empyema PLAN - doxycycline 100 mg b.i.d. p.o. - Keflex 500 mg b.i.d. p.o. - prednisone 40 mg OD p.o. - CT chest without IV contrast (further clarification of pulmonary nodules identified on CT 02/2025) Myelofibrosis Pancytopenia Thrombocytopenia Eosinophilia Splenomegaly Eosinophilia could be 2/2 allergic asthma versus other infective process - consult hematology/oncology Pulmonary embolism 2020 and 2022 Not on anticoagulation at this time CTA 07/2024 negative for PE [facility] - VTE: Enoxaparin 40 mg - CODE STATUS: Full code - DIET: Regular Total time managing care of this patient today: 35 minutes. Quality Stroke Does the patient have a stroke diagnosis?: No VTE Prior VTE?: No VTE Risk Level:: Medical - moderate - high VTE Device Contraindication: Treatment Not Indicated VTE Drug Contraindication: N/A - Med Ordered
--- NOTE | 2025-06-12 13:48 | MHC.CM.PN ---
Pt. is living in a ch[facility], she could not say the address because it is confidential. She does not use home health services, for DME, she has a nebulizer. For transport home, her car is here. DCP: home, self care. CM to follow for DC needs.
--- NOTE | 2025-06-12 14:43 | PC.NURSE ---
Transport attempted to move patient to her admitting room Patient refused to go. Patient said she didnt know she was going to be admitted and that she has no one at home to watch her children. Notified Dr. Wilhelm, who said he would be down to speak with patient as soon as possible. Patient titrated to RA 93-94% denies SOB/WOB Intermittent cough noted
--- NOTE | 2025-06-12 20:35 | PM.EVENT ---
Event Note Date of Service: 06/12/25 Event Note: 8:30 PM - Patient wishes to leave AMA becauser she has to take care of her children. She was informed about the risk of leaving the hospital prematurely such worsening respiratory failure and bacteria in her blood leading to . She was advised to follow with her PCP SIMRAN and to return to ED if worsening of symptoms. I will contact her pharmacy to prescribe antibiotics. Patient signed AMA paperwork. Time Spent With Patient Time: Total time managing care of this patient today ____ minutes.
[2025-06-12 21:02] VITALS: BP 118/81; PULSE 107; RESP 24; TEMP 37; O2SAT 92
--- NOTE | 2025-06-12 21:09 | PC.NURSE ---
Pt spoke with Livan
--- NOTE | 2025-06-12 21:24 | PC.NURSE ---
Pt signed AMA form with Livan @ [id number]. Pt brother came to room after, informed RN that pt was not quite clear or understanding what her plan of care was to be, or what her dx was. RN explained with help of brother interpretation why hospitalist wanted to admit patient, RN also explained which blood work was done, as well as what scans. Brother explained to pt, pt has better understanding and wishes to stay. geothermal powerplant mechanic informed, as well as Livan.
[2025-06-12 21:34] VITALS: BMI 24.8
[2025-06-12 21:52] VITALS: BP 93/68; PULSE 90; RESP 18; TEMP 36.8; O2SAT 96
[2025-06-13 03:09] VITALS: BP 95/52; PULSE 83; RESP 16; TEMP 36; O2SAT 93
--- NOTE | 2025-06-13 04:08 | MHC.PIE ---
p; pt c/o h/a and nausea. note; no prn for nausea? i; dr fortune notified. new order zofran prn e; prn tylenol given, prn zofran given, will cont to monitor
[2025-06-13 06:24] LABS: MANUAL DIFF FLAG NO
[2025-06-13 06:26] LABS: Hematocrit 39.8 % (37.0-47.0); Hemoglobin 12.4 g/dl (12.0-16.0); Imm Gran Abs Auto 0.03 X10*3/uL (0.00-0.03); Imm Gran Pct Auto 0.5 % (0.0-0.4); Lymphocytes Absolute Auto 2.3 X10*3/uL (1.2-4.9); Mean Corpuscular HGB Conc 31.2 g/dl (31.0-35.0); Mean Corpuscular Hemoglobin 25.6 pg (27.0-33.0); Mean Corpuscular Volume 82.2 fL (80.0-98.0); NRBC Abs Auto 0.000 X10*3/uL (0.0-0.012); NRBC Pct Auto 0.0 /100WBC (0.0-0.2); Platelet Count 71 X10*3/uL (160-400); Red Blood Count 4.84 X10*6/uL (4.20-5.50); White Blood Count 5.8 X10*3/uL (4.8-10.8)
[2025-06-13 06:41] LABS: Alanine Aminotransferase 28 U/L (0-31); Albumin Level 4.0 g/dL (3.5-5.0); Alkaline Phosphatase 82 U/L (39-117); Anion Gap 11 (12-20); Aspartate Amino Transferase 19 U/L (5-31); Blood Urea Nitrogen 19 mg/dL (9-16); Calcium 9.0 mg/dL (8.4-10.2); Carbon Dioxide 28 mmol/L (22-29); Chloride 108 mmol/L (96-108); Creatinine Clr Calc Pharmacy 104.2; Estimated Glomerular Filt Rate > 60; Potassium 4.3 mmol/L (3.3-5.1); Sodium 143 mmol/L (135-145); Total Protein 6.3 g/dL (6.5-8.0)
[2025-06-13 07:06] VITALS: BP 90/54; PULSE 70; RESP 14; TEMP 36.4; O2SAT 92
[2025-06-13] MEDS: 0.9 % Sodium Chloride Flush 3 ML SYRINGE IVFLUSH (09:05)
--- NOTE | 2025-06-13 10:43 | PM.CNPUL ---
History of Present Illness History of Present Illness Consult date: 06/13/25 Chief complaint: acute hypoxic respiratory failure asthma infective Narrative: Old lady with underlying history of unprovoked PE in 2020 2022, myelofibrosis, pancytopenia, pneumonia complicated by empyema, splenomegaly, asthma admitted on 06/11/2025 with dyspnea and one-week history of cough productive of dark phlegm with subjective fevers. Patient initially not to be toxemic requiring supplemental oxygen at [address] chest demonstrating waxing and waning pulmonary nodules, with largest 1 at 1.4 cm in the right upper lobe. Patient was treated with empiric antibiotics and systemic glucocorticoids with improvement in her symptoms. Now with normoxemia on room air. Review of Systems Constitutional: Constitutional: Denies daytime sleepiness, Denies excessive sweating, Denies fatigue, Denies fever(s), Denies lethargy, Denies malaise, Denies night sweats, Denies snoring and Denies weight loss Eyes: Eyes: Denies blurry vision and Denies itchy eyes ENT: Denies nasal congestion, Denies post nasal drip, Denies sinus pain, Denies sinus pressure and Denies other ( Thrush) Cardiovascular: Cardiovascular: Denies chest pain, Denies pedal edema, Denies dyspnea, Denies orthopnea and Denies paroxysmal nocturnal dyspnea Respiratory: Respiratory: Reports cough, Denies hemoptysis, Reports excessive phlegm production, Denies dyspnea, Denies snoring and Denies wheezing Gastrointestinal: Gastrointestinal: Denies abdominal pain and Denies heartburn Musculoskeletal: Musculoskeletal: Denies myalgias, Denies arthralgias and Denies joint swelling Integumentary/Breasts: Skin/Breast: Denies rash Neurologic: Denies memory loss and Denies seizure-like activity Psychiatric: Psychiatric: Denies abnormal sleep pattern, Denies anxiety and Denies memory loss Endocrine: Endocrine: Denies excessive sweating, Denies fatigue and Denies heat intolerance Hematologic/Lymphatic: Hematologic/Lymphatic: Denies easy bruising Allergic/Immunologic: Allergic/Immunologic: Denies itchy eyes, Denies seasonal rhinorrhea and Denies wheezing PMFSH Past Medical History Medical History (Updated 06/13/25 @ 10:47 by Prabhakar Vicente MD) Asthma Pyothorax Recurrent right pleural effusion Asthma Hypogammaglobulinemia Pneumonia History of pulmonary embolism Thrombocytopenia Myelofibrosis Family History Family History Maternal Grandmother Breast CA Surgical History Surgical History (Updated 01/15/25 @ 15:33 by Payton Ingram MD) History of surgery Previous section Social History Social History Household Members: Other Housing: Other Housing Other:: senior living Do you presently have visiting nurse or other home services: No Alcohol intake: former Patient Tobacco Use Status: Never used Tobacco service: No Current occupational status: unemployed Gender identity: Female Meds Allergies Allergy/AdvReac Type Severity Reaction Status Date / Time No Known Allergies Allergy Verified 06/11/25 11:46 Active Medications: Current Medications Acetaminophen (Acetaminophen 325 Mg Tablet) 650 mg PO Q6H PRN PRN Reason: Pain, Mild 1-3,fever,headache Last Admin: 06/13/25 03:41 Dose: 650 mg Calcium Carbonate (Calcium Carbonate 750 Mg Tab.Chew) 750 mg PO Q4H PRN PRN Reason: Heartburn Cephalexin HCl (Cephalexin 500 Mg Capsule) 500 mg PO BID [facility] Last Admin: 06/13/25 09:05 Dose: 500 mg Doxycycline Monohydrate (Doxycycline Monohydrate 100 Mg Capsule) 100 mg PO BID [facility] Last Admin: 06/13/25 09:05 Dose: 100 mg Enoxaparin Sodium (Enoxaparin Sodium 40 Mg/0.4 Ml Syringe) 40 mg SUBCUT Q24H [facility] Last Admin: 06/12/25 15:22 Dose: 40 mg Magnesium Hydroxide (Milk Of Magnesia 30 Ml Oral.Susp) 30 ml PO DAILY PRN PRN Reason: Constipation Melatonin (Melatonin 3 Mg Tablet) 6 mg PO BEDTIME PRN PRN Reason: Insomnia Last Admin: 06/12/25 21:47 Dose: 6 mg Ondansetron HCl (Ondansetron Hcl 4 Mg/2 Ml Vial) 4 mg IVPUSH Q6H PRN PRN Reason: Nausea and Vomiting Last Admin: 06/13/25 04:07 Dose: 4 mg Prednisone (Prednisone 20 Mg Tablet) 40 mg PO DAILY [facility] Stop: 06/18/25 15:14 Last Admin: 06/13/25 09:05 Dose: 40 mg Sodium Chloride (0.9 % Sodium Chloride Flush 3 Ml Syringe) 3 ml IVFLUSH QSHIFT [facility] Last Admin: 06/13/25 09:05 Dose: 3 ml Home Medications ?Medication ?Instructions ?Recorded ?Confirmed ?Last Taken ?Type albuterol sulfate 90 mcg/actuation 2 puff inhalation QID PRN 06/11/25 06/11/25 Unknown History aerosol inhaler (Ventolin HFA) Shortness Of Breath Or Wheezing Physical Exam Vital Signs: Vital Signs: Last Vital Signs Temp 97.6 F 06/13/25 07:06 Pulse 70 06/13/25 07:06 Resp 14 06/13/25 07:06 BP 90/54 L 06/13/25 07:06 Pulse Ox 92 06/13/25 07:06 O2 Del Method Room Air 06/13/25 07:06 O2 Flow Rate 2 06/12/25 12:22 BMI result Body Mass Index 24.8 Const: General: no acute distress and alert Nutritional Appearance: not obese Orientation/consciousness: Other orientation findings ( oriented) HEENT: Head: Yes atraumatic Eyes: General: appearance normal, both eyes and all related structures Sclerae: sclerae normal EOM: EOMs intact bilaterally Neck: Neck: Yes supple Lymphatic: no lymphadenopathy noted Resp: Effort & Inspection: normal respiratory effort and no use of accessory muscles Auscultation: clear to auscultation bilaterally Cardio: Rate: regular rate Rhythm: regular rhythm Heart sounds: no gallops, no murmurs and no rubs Skin: General skin exam: other ( warm) Extrem: General: No clubbing, No cyanosis and No edema Results Laboratory Findings 06/13/25 05:50 06/13/25 05:50 Abnormal lab findings: Abnormal Labs 06/11/25 06/12/25 06/13/25 12:18 04:55 05:50 MCH 26.2 L 26.8 L 25.6 L Plt Count 76 L 73 L 71 L Immature Gran % (Auto) 0.8 H 0.5 H Eos % (Auto) 7.2 H Eos # (Auto) 0.6 H Abs Immat Gran (auto) 0.05 H Chloride 109 H 109 H Anion Gap 11 L BUN 19 H Random Glucose 144 H AST 42 H ALT 50 H 37 H Total Protein 6.3 L Assessment and Plan (1) Acute hypoxemic respiratory failure: Status: Acute (2) Eosinophilia: Qualifiers: Eosinophilia type: unspecified eosinophilia Qualified Code(s): D72.10 - Eosinophilia, unspecified Status: Acute (3) Asthma: Status: Acute (4) Bronchiectasis: Status: Acute Plan Impression: 24-year-old lady with underlying asthma admitted with acute hypoxic respiratory failure and productive cough with CT chest showing waxing and waning pulmonary nodules and peripheral eosinophilia, improved to baseline on systemic glucocorticoids and empiric antibiotics. Likely exacerbation of underlying asthma and bronchiectasis, also with possible component of allergic bronchopulmonary aspergillosis. Total IgE and Aspergillus specific IgE levels are pending. Recommendation: Agree with current therapeutic regimen including empiric antibiotics to cover exacerbation of underlying bronchiectasis and systemic glucocorticoids for asthma exacerbation and possible ABPA. Procedures Date of Service Date of Service: 06/13/25
--- NOTE | 2025-06-13 11:09 | PM.DS ---
DS: Providers Provider Date of Service: 06/13/25 Date of admission: 06/11/25 14:58 Date of discharge: 06/13/25 Primary care physician: Unknown Physician Admitting clinician: Mary Jo Wilhelm Consults: 06/12/25 13:19 Consult to Pulmonology Routine Consulting Provider: [facility] Reason for consultation: Hypoxic respiratory failure, pulmonary nodules, bronchitis Attending physician on discharge: Mary Jo Wilhelm DS: Diagnosis Discharge Diagnosis (1) Acute hypoxemic respiratory failure: Status: Acute (2) Eosinophilia: Status: Acute (3) Asthma: Status: Acute (4) Bronchiectasis: Status: Acute DS: Summary Hospital Course Hospital Course: Chief Complaint: Cough, fever, phlegm production 24-year-old female with a background history of PE 2020 & 2022 (unprovoked), myelofibrosis (2000) s/p transfusion support until 2018, pancytopenia/ thrombocytopenia, pneumonia c/b empyema, splenomegaly, presents to the hospital with complaints of 1 and half week of cough productive of black phlegm, and subjective fever. Complaints of initially dry cough, progressing to productive over the past 1-1/2 weeks. Productive cough described as black in color, thick and difficult to bring up. She endorses subjective fever, with rigors and sweating yesterday, however has not recurred since. Patient denies wheezing, dyspnea. She denies retrosternal chest pain, palpitations, nausea, vomiting, diarrhea. Denies new rashes. ED MANAGEMENT 88% ON ARRIVAL, PLACED ON 2 L NC IMPROVEMENT TO 90-93%. SHE WAS GIVEN PREDNISONE 60 MG, 2 MG MAGNESIUM, AND NEBULIZER TREATMENTS. Hypoxic 88% and tachycardic on mobilization. Chest x-ray revealing inflammatory airway disease, notably in the lingula and right middle lobe. ADDITIONAL Patient has a complicated background history including diagnosis of myelofibrosis at 1-year-old, requiring supportive transfusions until 2018, then she was lost to follow up. 2020 in 2022, the patient suffered with a pulmonary embolism, however there is no record of her being on anticoagulation. Recent CTA 07/2024 negative for PE, ultrasound bilateral lower extremities negative for DVT. She suffered with a prolonged hospitalization during July 2024 after a 2nd , c/b pneumonia with empyema - patient describes tube placement on her right side to allow drainage. As per hematology/oncology note; Bone marrow biopsy 01/2025 revealed normocellular, erythroid dominant marrow with left-shifted myeloid maturation, reticulin fibrosis, reduced iron stores, flow cytometry showing nonspecific T-cell dominant profile. No increase in CD34 positive cells, no evidence of B-cell lymphoproliferative disorder. 24-year-old female with a background history of PE 2020 & 2022 (unprovoked), myelofibrosis (2000) s/p transfusion support until 2018, pancytopenia/ thrombocytopenia, pneumonia c/b empyema, splenomegaly, presents to the hospital with complaints of 1 and half week of cough productive of black phlegm, and subjective fever, admitted with acute hypoxic respiratory failure 2/2 pneumonia. Acute hypoxic respiratory failure Community-acquired pneumonia History of pneumonia c/b empyema PLAN - doxycycline 100 mg b.i.d. p.o. - Keflex 500 mg b.i.d. p.o. - prednisone 40 mg OD p.o. - CT chest without IV contrast (further clarification of pulmonary nodules identified on CT 02/2025) - FU outpatient pulmonology - FU PCP Myelofibrosis Pancytopenia Thrombocytopenia Eosinophilia Splenomegaly Eosinophilia could be 2/2 allergic asthma versus other infective process FU outpatient Hematology/ Oncology Status at Discharge Functional status at discharge: independent ambulation Overall status at discharge: patient is back to baseline Time Attestation Total time managing care of this patient today: 35 mintues. Discharge Coordination Time (in mins): 15 Quality: Safe Use of Opioids Does Pt have an Active Cancer Diagnosis on the Problem List?: No Quality: Stroke Does the patient have a stroke diagnosis?: No Physical Exam Exam: Exam: General: A&O x3, oriented to time place person and situation, comfortable, no pain Cardiac: S1, S2 auscultated with no S3/4, no MRG. Well perfused. Respiratory: Decreased breath sounds throughout all lung zones, with mild crackles and crepitations auscultated in the right lower and mid zones. End expiratory wheezing auscultated throughout all lung zones. No respiratory distress, no tripoding, no peripheral or central cyanosis. GI/ : No abdominal pain on palpation, no masses or distentions. MSK: Normal ambulation without pain at bony prominences or musculature Neurological: Normal neurological examination on overview, without obvious CN II-XII abnormalities. Vital Signs: Vital Signs: Last Vital Signs Temp 97.6 F 06/13/25 07:06 Pulse 70 06/13/25 07:06 Resp 14 06/13/25 07:06 BP 90/54 L 06/13/25 07:06 Pulse Ox 92 06/13/25 07:06 O2 Del Method Room Air 06/13/25 07:06 O2 Flow Rate 2 06/12/25 12:22 BMI result Body Mass Index 24.8 DS: Data Data Completed and Pending Labs on day of discharge: Laboratory Results - last 24 hr 06/13/25 05:50 WBC 5.8 RBC 4.84 Hgb 12.4 Hct 39.8 MCV 82.2 MCH 25.6 L MCHC 31.2 RDW 14.6 Plt Count 71 L MPV 11.1 Immature Gran % (Auto) 0.5 H Neut % (Auto) 49.4 Lymph % (Auto) 38.9 Richardson % (Auto) 8.5 Eos % (Auto) 2.4 Baso % (Auto) 0.3 Lymph # (Auto) 2.3 Richardson # (Auto) 0.5 Eos # (Auto) 0.1 Baso # (Auto) 0.0 Abs Immat Gran (auto) 0.03 Absolute Neuts (auto) 2.9 Absolute Nucleated RBC 0.000 Nucleated RBC % (auto) 0.0 Sodium 143 Potassium 4.3 Chloride 108 Carbon Dioxide 28 Anion Gap 11 L BUN 19 H Creatinine 0.69 Estim Creat Clear Calc 104.2 Estimated GFR > 60 Random Glucose 88 Calcium 9.0 Total Bilirubin 0.5 AST 19 ALT 28 Alkaline Phosphatase 82 Total Protein 6.3 L Albumin 4.0 Discharge Plan Discharge Anticipated Discharge Date/Time: 06/13/25 11:21 Patient Disposition: Home, Self-Care Discharge Diagnosis: Acute hypoxic respiratory failure 2/2 infective exacerbation of severe persistent asthma in setting of underlying bronchiectasis Referrals: Physician,Unknown J [Primary Care Provider, Medical] - 1 Week Discharge Medications: New prednisone 20 mg Tablet 40 mg PO DAILY 10 Days Qty: 20 0RF doxycycline monohydrate 100 mg Capsule 100 mg PO BID 10 Days Qty: 20 0RF cephalexin 500 mg Capsule 500 mg PO BID 10 Days Qty: 20 0RF Trelegy Ellipta 200-62.5-25 mcg blister with device 1 inh inhalation DAILY 30 Days Qty: 1 1RF Continued albuterol sulfate [Ventolin HFA] 90 mcg/actuation HFA aerosol inhaler 2 puff inhalation QID PRN (Reason: Shortness Of Breath Or Wheezing) Discharge Orders: Discharge Order (Routine); Ordered 06/13/25 Ordered By: Mary Jo Wilhelm Diet: Advance to usual diet Activity on Discharge: As tolerated Stand Alone Forms: Patient Portal Discharge page Print Language: French Care Plan Goals: As above Health Concerns: Severe persistent asthma, with superimposed bronchiectasis and acute on chronic inflammatory/infectious pulmonary nodules of undetermined etiology. Possible underlying acute bronchopulmonary aspergillosis? Plan of Treatment: - doxycycline 100 mg b.i.d. p.o. - Keflex 500 mg b.i.d. p.o. - prednisone 40 mg OD p.o. - FU outpatient pulmonology - FU PCP - Outpatient Hematology/Oncology (Dr. Ingram) - FU aspergillosis blood studies Assessment: Currently off oxygen. Back to respiratory baseline. Given stability and management of acute infective exacerbation, patient is safe for discharge home with close follow up in outpatient setting
--- NOTE | 2025-06-13 12:23 | MHC.CM.PN ---
Patient is discharged today. She will self transport to the care home where she has been living. The address is confidential.
[2025-06-16 13:28] LABS: Index Value 0.15 (<0.50)
== END 2025-06-13 13:31 | disposition home or self-care (01) | DRG 141 ==
LOC: HO.ED 13:59 → HO.EDOVER 15:13 → HO.S3 06-12 13:09 → HO.EDOVER 06-12 14:49 → HO.S3 06-12 19:20
PROVIDERS: Internal Medicine Pulmonary Disease; Physician Assistant; Physician Assistant Medical; Admitting Provider Hospitalist; Emergency Provider Emergency Medicine; Visit Provider Hospitalist
DX: J45.51 Severe persistent asthma with (acute) exacerbation (principal); J96.01 Acute respiratory failure with hypoxia; D61.818 Other pancytopenia; J18.9 Pneumonia, unspecified organism; D75.81 Myelofibrosis; J47.0 Bronchiectasis with acute lower respiratory infection; J47.1 Bronchiectasis with (acute) exacerbation; R16.1 Splenomegaly, not elsewhere classified; Z20.822 Contact with and (suspected) exposure to COVID-19; Z86.711 Personal history of pulmonary embolism; Z87.01 Personal history of pneumonia (recurrent); Z79.899 Other long term (current) drug therapy
CPT/HCPCS: 36415; 71046; 71250; 80053; 81025; 82785; 83735; 85025; 87070; 87205; 87305; 87502; 87635; 93005; 94640; 99285; J1650; J2405; J2919; J3475

== ENCOUNTER → 2025-06-11 11:49 | Outpatient (BNV) | payer OTHER, SELFPAY | PROVIDERS: Emergency Provider Emergency Medicine; Visit Provider Internal Medicine Cardiovascular Disease | DX: R00.0 Tachycardia, unspecified (principal) | CPT/HCPCS: 93010 ==

== ENCOUNTER → 2025-06-11 11:49 | Outpatient (BNV) | payer OTHER, SELFPAY | PROVIDERS: Emergency Provider Emergency Medicine; Visit Provider Radiology Diagnostic Radiology | DX: R05.9 Cough, unspecified (principal) | CPT/HCPCS: 71046 ==

== ENCOUNTER → 2025-06-11 14:58 | Outpatient (BNV) | payer OTHER, SELFPAY | PROVIDERS: Admitting Provider Hospitalist; Emergency Provider Emergency Medicine; Visit Provider Hospitalist | DX: J47.9 Bronchiectasis, uncomplicated (principal); J96.01 Acute respiratory failure with hypoxia; D72.10 Eosinophilia, unspecified; J45.909 Unspecified asthma, uncomplicated | CPT/HCPCS: 99222; 99232; 99239; 99499 ==

== ENCOUNTER → 2025-06-11 14:58 | Outpatient (BNV) | payer OTHER, SELFPAY | PROVIDERS: Admitting Provider Hospitalist; Emergency Provider Emergency Medicine; Visit Provider Internal Medicine Pulmonary Disease | DX: J96.01 Acute respiratory failure with hypoxia (principal); D72.10 Eosinophilia, unspecified; J45.909 Unspecified asthma, uncomplicated; J47.9 Bronchiectasis, uncomplicated | CPT/HCPCS: 99223 ==

== ENCOUNTER 2025-09-11 09:04 | Emergency (ER) | payer OTHER, SELFPAY ==
--- NOTE | ~2025-09-11 | XR_ITS ---
EXAMINATION: XR CHEST CLINICAL INFORMATION: currently being tx for PNA COMPARISON: June 11, 2025. TECHNIQUE: PA and lateral views. FINDINGS: Pulmonary reticular pattern with saccular bronchiectasis and peribronchial septal thickening extending from the perihilar regions to the periphery of the lungs. No gross pleural effusion or pneumothorax. Cardiomediastinal silhouette size is normal. Kyphotic deformity at the thoracolumbar junction. Callus formation, posterior lateral aspect of the right seventh rib.. XR/XR chest 2V IMPRESSION: Slight improved aeration with persistent airspace disease. Please refer to the CT chest findings dated June 11, 2025. Electronically signed by: Rod Horowitz MD 09/11/2025 12:31 PM [facility]
[2025-09-11 09:16] VITALS: BP 118/63; PULSE 76; RESP 20; TEMP 36.1; O2SAT 94; BMI 27.7
[2025-09-11 10:13] LABS: MANUAL DIFF FLAG NO
[2025-09-11 10:17] LABS: Hematocrit 42.0 % (37.0-47.0); Hemoglobin 13.4 g/dl (12.0-16.0); Imm Gran Abs Auto 0.03 X10*3/uL (0.00-0.03); Imm Gran Pct Auto 0.5 % (0.0-0.4); Lymphocytes Absolute Auto 1.8 X10*3/uL (1.2-4.9); Mean Corpuscular HGB Conc 31.9 g/dl (31.0-35.0); Mean Corpuscular Hemoglobin 25.9 pg (27.0-33.0); Mean Corpuscular Volume 81.2 fL (80.0-98.0); NRBC Abs Auto 0.000 X10*3/uL (0.0-0.012); NRBC Pct Auto 0.0 /100WBC (0.0-0.2); Platelet Count 116 X10*3/uL (160-400); Red Blood Count 5.17 X10*6/uL (4.20-5.50); White Blood Count 6.1 X10*3/uL (4.8-10.8)
[2025-09-11 10:31] LABS: Alanine Aminotransferase 42 U/L (0-31); Albumin Level 4.7 g/dL (3.5-5.0); Alkaline Phosphatase 85 U/L (39-117); Anion Gap 11 (12-20); Aspartate Amino Transferase 30 U/L (5-31); Blood Urea Nitrogen 11 mg/dL (9-16); Calcium 9.4 mg/dL (8.4-10.2); Carbon Dioxide 23 mmol/L (22-29); Chloride 112 mmol/L (96-108); Creatinine Clr Calc Pharmacy 121.1; Estimated Glomerular Filt Rate > 60; Lipase 20 U/L (8-78); Potassium 4.1 mmol/L (3.3-5.1); Sodium 142 mmol/L (135-145); Total Protein 6.6 g/dL (6.5-8.0)
--- NOTE | 2025-09-11 11:15 | ED_ITS ---
HPI - General Adult General Chief complaint: General Medical Stated complaint: dizzy Time Seen by Provider: 09/11/25 18:33 Related Data Home Medications ?Medication ?Instructions ?Recorded ?Confirmed albuterol sulfate 90 mcg/actuation 2 puff inhalation Q ID PRN 06/11/25 07/04/25 aerosol inhaler (Ventolin HFA) Shortness Of Breath Or Wheezing Previous Rx's ?Medication ?Instructions ?Recorded cephalexin 500 mg capsule 500 mg PO BID 10 days #20 ca ps 06/13/25 doxycycline monohydrate 100 mg 100 mg PO BID 10 days # 20 caps 06/13/25 capsule fluticasone fur. 200 mcg-umeclid 1 inh inhalation MARSHALL Y 30 days #1 06/13/25 62.5 mcg-vilant 25 mcg ea inhalat.powder (Trelegy Ellipta) Allergies Allergy/AdvReac Type Severity Reaction Status Date / Time No Known Allergies Allergy Verified 09/11/25 09:20 [facility] Past Medical History Medical History (Updated 09/25/25 @ 00:00 by Frantz Rubi) Pyothorax Recurrent right pleural effusion Asthma Hypogammaglobulinemia Pneumonia History of pulmonary embolism Thrombocytopenia Myelofibrosis Surgical History History of surgery Previous section Family History Family History Maternal Grandmother Breast CA Social History Social History Household Members: Other Housing: Other Housing Other:: [facility] Do you presently have visiting nurse or other home services: No Alcohol intake: former Patient Tobacco Use Status: Never used Tobacco Advance Directives: No Do you have a plan to hurt others: No Plan service: No Current occupational status: unemployed Gender identity: Female Physical Exam ED Vital Signs: Vital Signs - 24 hr 09/11/25 09:16 Temperature 96.9 F Pulse Rate 76 Respiratory Rate 20 Blood Pressure 118/63 Pulse Oximetry 94 Oxygen Delivery Method Room Air BMI result Body Mass Index 27.7 Course Course Course Narrative: This is a rapid medical exam performed by Mariah Clark NP: Additional HPI, ROS, PE not included below will be deferred to primary provider. Patient is a 25y/o F presenting to the ED stating that she was prescribed augmentin and azithromycin on Tuesday for pneumonia. After taking the azithromycin with food last night became nauseated and lightheaded. Plan: EKG, CXR, already had labs done Patient left the emergency department before myself or any of the other clinicians could review or explain physical exam findings, test results, need or lack there of for additional testing, treatment options, or a treatment plan. Medical Decision Making Lab Data 09/11/25 10:08 09/11/25 10:08 Labs: Lab Results 09/11/25 Range/Units 10:08 WBC 6.1 (4.8-10.8) X10*3/uL RBC 5.17 (4.20-5.50) X10*6/uL Hgb 13.4 (12.0-16.0) g/dl Hct 42.0 (37.0-47.0) % MCV 81.2 (80.0-98.0) fL MCH 25.9 L (27.0-33.0) pg MCHC 31.9 (31.0-35.0) g/dl RDW 14.1 (11.0-16.0) % Plt Count 116 L D (160-400) X10*3/uL MPV 10.5 (9.4-12.3) fL Immature Gran % (Auto) 0.5 H (0.0-0.4) % Neut % (Auto) 57.9 (45-73) % Lymph % (Auto) 28.8 (20-40) % [place] % (Auto) 7.4 (2-11) % Eos % (Auto) 5.1 H (0-4) % Baso % (Auto) 0.3 (0-2) % Lymph # (Auto) 1.8 (1.2-4.9) X10*3/uL [place] # (Auto) 0.5 (0.1-1.2) X10*3/uL Eos # (Auto) 0.3 (0.0-0.4) X10*3/uL Baso # (Auto) 0.0 (0.0-0.2) X10*3/uL Abs Immat Gran (auto) 0.03 (0.00-0.03) X10*3/uL Absolute Neuts (auto) 3.5 (2.0-8.3) x10*3/uL Absolute Nucleated RBC 0.000 (0.0-0.012) X10*3/uL Nucleated RBC % (auto) 0.0 (0.0-0.2) /100WBC Sodium 142 (135-145) mmol/L Potassium 4.1 (3.3-5.1) mmol/L Chloride 112 H (96-108) mmol/L Carbon Dioxide 23 (22-29) mmol/L Anion Gap 11 L (12-20) BUN 11 (9-16) mg/dL Creatinine 0.62 (0.5-1.4) mg/dL Estim Creat Clear Calc 121.1 Estimated GFR > 60 Random Glucose 92 (60-115) mg/dL Calcium 9.4 (8.4-10.2) mg/dL Total Bilirubin 1.1 H (0.0-1.0) mg/dL Direct Bilirubin 0.3 (0.0-0.5) mg/dL AST 30 (5-31) U/L ALT 42 H (0-31) U/L Alkaline Phosphatase 85 (39-117) U/L Total Protein 6.6 (6.5-8.0) g/dL Albumin 4.7 (3.5-5.0) g/dL Lipase 20 (8-78) U/L Discharge Plan Discharge Clinical Impression: Dizziness Patient Disposition: Left W/O Completing Treatment Prescriptions: No Action albuterol sulfate [Ventolin HFA] 90 mcg/actuation HFA aerosol inhaler 2 puff inhalation QID PRN (Reason: Shortness Of Breath Or Wheezing) doxycycline monohydrate 100 mg Capsule 100 mg PO BID 10 Days Qty: 20 0RF cephalexin 500 mg Capsule 500 mg PO BID 10 Days Qty: 20 0RF Trelegy Ellipta 200-62.5-25 mcg blister with device 1 inh inhalation DAILY 30 Days Qty: 1 1RF Discharge Date/Time: 09/11/25 19:59
--- NOTE | 2025-09-11 11:20 | ECG_ITS ---
Test Reason : lightheadedness Blood Pressure : */* mmHG Vent. Rate : 68 BPM Atrial Rate : 68 BPM P-R Int : 124 ms QRS Dur : 72 ms QT Int : 400 ms P-R-T Axes : 34 68 60 degrees QTcB Int : 425 ms Normal sinus rhythm with sinus arrhythmia Normal ECG When compared with ECG of 11-Jun-2025 12:29, Vent. rate has decreased by 33 bpm Referred By: Malu Clark Electronically Signed By: GIULIANO MANZANO
--- OUTSIDE RECORDS SUMMARY | 2025-09-11 19:54 | XMS_ITS | Clinical Summary ---
Author Organization [facility] Address [address] [place] [id number] Phone Care Team Providers Care Merchandise Flow Team Member Name Role Phone Self-Referred, Patient Unavailable Unavailab Maria Alejandra Sosa NP Primary Care Provider Payton Ingram MD Unavailable [phone] Social History Tobacco Use Types Packs/Day [...] HPV VACCINES (1 - 3-dose series) 2015 HEPATITIS C SCREENING 2018 HIV ONE-TIME SCREENING (18-6 5 YEARS) 2018 PAP SMEAR 2021 INFLUENZA VACCINE (#1) 2025 COVID-19 VACCINE ( - 2024-2 6 season) 2025 HEPATITIS A VACCINES Aged Out No long [...] Insurance [employer] HE[employer]Y [facility] [employer]CO [employer] A[employer] Care Teams Merchandise Flow Team Member Relationship Specialty Start Date End Date Maria Alejandra Odom NP [address] [place] [id number] PCP - General Nurse Practitioner 03/29/25 Self-Referred, Patient Referring Physician 02/14/25 Payton Ingram MD [address] [place] [id number] [email or web address] 03/29/25 Additional Source Comments The information contained in this document represents components of the legal health record. It is not the complete legal health record.[facility]
== END 2025-09-11 19:59 | disposition left against medical advice (07) ==
LOC: HO.ED 19:52
PROVIDERS: Emergency Medicine; Emergency Provider Emergency Medicine; PCP Family Medicine
DX: J45.909 Unspecified asthma, uncomplicated (principal); Z79.51 Long term (current) use of inhaled steroids
CPT/HCPCS: 36415; 71046; 80048; 80076; 83690; 85025; 93005; 99281; 99283

== ENCOUNTER → 2025-09-11 11:19 | Outpatient (BNV) | payer OTHER, SELFPAY | PROVIDERS: PCP Family Medicine; Visit Provider Radiology Diagnostic Radiology | DX: J18.9 Pneumonia, unspecified organism (principal) | CPT/HCPCS: 71046 ==

== ENCOUNTER → 2025-09-11 11:20 | Outpatient (BNV) | payer OTHER, SELFPAY | PROVIDERS: PCP Family Medicine; Visit Provider Internal Medicine | DX: R42 Dizziness and giddiness (principal) | CPT/HCPCS: 93010 ==